=== PATIENT | female | born 1940 | race Caucasian/White ===

== ENCOUNTER 2017-02-05 01:57 | Emergency (ER) | payer OTHER, MEDICARE ==
--- NOTE | 2017-02-05 04:58 | ED ORDER SUMMARY ---
..... Patient: MARY JANE MUNOZ OrderSheet Formerly [facility] VisitID: [id number] [address] [place] [address] 76y, F Registration Date/Time: 02/05/2017 ORDER SHEET Weight: 43.9 kg (stated) Allergies: Biaxin, Ceclor, Cephalosporins, Cipro, Ibuprofen, Sulfa Drugs GENERAL ORDERS: Chest 2V Urgent (02:06 02/05/2017 Elaine Birch) (Ack 2:27 AMcQuoid ER Tech1) (3:33 AMcQuoid ER Tech1) Principal Mechanical Engineer (Continuous) (Respiratory Distress) (02:06 02/05/2017 Elaine Birch) (2:14 HSoule) CBC w Diff Urgent (02:06 02/05/2017 Elaine Birch) (2:27 AMcQuoid ER Tech1) CMP Urgent (02:06 02/05/2017 Elaine Birch) (2:27 AMcQuoid ER Tech1) Pulse oximeter (02:06 02/05/2017 Elaine Birch) (2:10 HSoule) Oxygen (2 L/min) (NC) (02:06 02/05/2017 Elaine Birch) (2:10 HSoule) MEDICATION ORDERS: DuoNeb Neb Tx 1 unit dose (NOW) (02:06 02/05/2017 Elaine Birch) (2:10 HSoule) Albuterol Neb Tx 5 mg (once now) (03:10 02/05/2017 Elaine Birch) (Ack 3:11 HSoule) (3:20 HSoule) Azithromycin PO 500 mg (NOW) (04:48 02/05/2017 Elaine Birch) (4:52 HSoule) IV FLUIDS: Solu-MEDROL IV 125 mg (NOW) (02:06 02/05/2017 Elaine Birch) (Ack 2:10 HSoule) (2:19 HSoule) IV Saline Lock (02:06 02/05/2017 Elaine Birch) (2:10 HSoule) Ativan IV 1 mg (HIGH ALERT MEDICATION, NOW) (04:20 02/05/2017 Elaine Birch) (4:40 HSoule) ORDER SHEET NOTES: [Electronically signed by Maite eTllo (05:20 02/05/2017)] [Electronically signed by Daniel Braxton Dr. (08:21 02/06/2017)] [Electronically locked/signed by Maite Tello (05:02/05/2017)]
--- NOTE | 2017-02-05 04:58 | ED NURSING NOTES ---
Clinical Report - Nurses [facility] [address] [place] [address] 02/05/2017 1:57 Patient: MARY JANE MUNOZ TRIAGE Triage time 01:59 Feb 05 2017. Acuity: LEVEL 3. Chief Complaint: SHORTNESS OF BREATH. --02:08 Maite Tello 01:59 02/05/17. BP: 119/67. HR: 104. RR: 24. O2 saturation: 95% on nasal cannula at 4 liters/minute. Pain level now: 0/10. --02:08 Maite Tello SEPSIS SCREEN: Sepsis Screen: negative heart rate greater than 90 (Possibility for infection). --02:08 Maite Tello ABBIE COMA SCORE: Abbie Coma Scale: 15- eyes open spontaneously (4); best verbal response- oriented x 4 (5); best motor response- obeys commands (6). --02:09 Maite Tello 01:59 02/05/17. Temp: 97.9 F. --05:19 Maite Tello. Weight: 43.9 kg stated. Height/Length: 60 inches Per Patient. BMI: 18.9. --02:06 Maite Tello. Medications Effexor Oral 150mg, daily. HCTZ 25 mg, daily. Potassium Oral 40mEq, daily. PredniSONE Oral 5 mg, daily. Sucralfate Oral, as needed. Vitamins/Minerals Oral 1 pill, daily. --02:05 Maite Tello Ventolin HFA Inhalation. --02:05 Maite Tello Hydrocodone-Acetaminophen Oral. --02:06 Maite Tello. Allergies Biaxin. Ceclor. Cephalosporins. Definite Severe(Anaphylaxis) Cipro. (doesn't remember SE, may be anaphylaxis.) Ibuprofen. (hurts stomach when taking too much) Sulfa Drugs. Definite Moderate(nausea) --02:04 Maite Tello. Medication/allergy information source: the patient. --02:08 Maite Tello. History Arrived by EMS. Historian: EMS and patient. Onset. (3 days). ( Patient reported choking on chicken about three days ago. She states that this caused some shortness of breath over the last three days. She states that she is having foam and phlegm coming up.). She has had a cough. No fever. Treatment CASING WORKER: See EMS report. EMS treatment CASING WORKER verbally communicated and report reviewed. See report. Oxygen administered by nasal cannula. RR: 32. O2 saturation: 97 on oxygen. ( 2 valium 5 albuterol). PAST MEDICAL HX: Chronic obstructive pulmonary disease. Immunizations: up-to-date. FALL RISK ASSESSMENT: Fall risk assessment completed. No fall risk identified. NUTRITIONAL RISK ASSESSMENT: The nutritional risk assessment revealed no deficiencies. FUNCTIONAL ASSESSMENT: Functional assessment: no impairments noted. LEARNING NEEDS ASSESSMENT: The learning needs assessment revealed no barriers. SKIN INTEGRITY ASSESSMENT: Skin integrity risk assessment completed. No skin integrity risk identified. --02:08 Maite Tello PAST MEDICAL HX: The patient is post-menopausal. SOCIAL HX: Light tobacco smoker (cigarette)- less than 1/2 a pack per day. No alcohol use or drug use. No infectious disease exposure. ABUSE ASSESSMENT: No report of abuse. --02:09 Maite Tello. PROBLEMS: Acute Pain. Peptic Ulcer Disease. Fibromyalgia. Arthritis. Medication Refill. Lung Disease. Hypoxia. Sacroiliitis. Immunizations. Anxiety Reaction. Skin Avulsion. Tetanus Status. Last Tetanus. Nephrolithiasis. Gastroesophageal Reflux. PTSD. --02:06 Maite Tello. ADDITIONAL SURGERIES: Adenoidectomy. Appendectomy. Cataract Surgery. Cholecystectomy. Hysterectomy. Tonsillectomy. --02:06 Maite Tello. Interventions ID band on patient. To treatment room. --02:08 Maite Tello. 01:55 02/05/2017 Site #1 started prior to arrival by EMS via IV in the right antecubital space with an 20g angiocath, with aseptic technique and good blood return; one attempt. --02:00 Maite Tello. PHYSICAL ASSESSMENT To room via stretcher. Patient gowned. GENERAL / NEURO / PSYCH: Alert. Oriented X 4. Appears anxious. HEENT: Mucous membranes are pink. RESPIRATORY: Mild respiratory distress. The patient can speak in full sentences. Cough. CVS: Cardiac rhythm: sinus tachycardia; (103). SKIN: Skin is warm and dry. --02:09 Maite Tello. NURSING PROGRESS NOTES Oxygen administered by nasal cannula at 4 liters. Pulse oximeter and NIBP monitor placed on patient. Patient gowned. Head of bed elevated. Reassurance given to the patient. Two patient identifiers checked. Call light placed in reach. Side rails up x 1. Bed placed in lowest position. Brakes of bed on. Patient ready for evaluation- chart flagged and ED physician notified. ( Provider at bedside). --02:10 Maite Tello Patient ID band checked for patient name and birthdate: patient confirmed. Blood samples drawn from the right antecubital space peripheral IV site by nurse ; labeled in presence of the patient and sent to lab: rainbow set. Initial blood discarded and additional blood sent to lab. Line flushed with 10 mL normal saline post blood draw. --02:10 Maite Tello 02:10 02/05/2017 Duoneb (Ipratropium-Albuterol) Neb TX Nebulizer 1 unit dose given. Given by the nurse. Allergies verified and confirmed 5 rights. --02:10 Maite Tello 02:19 02/05/2017 SOLU-MEDROL (MethylPREDNISolone Sodium Succ) IVP 125 mg given over 2 minute(s) via site #1. Allergies verified and confirmed 5 rights. IV patency established. IV site checked: no pain, redness, or swelling. IV flushed thoroughly pre- and post-medication administration. IVP given by RN. --02:19 Maite Tello Patient transported to radiology by stretcher with tech. --02:22 Maite Tello 02:19 02/05/17. BP: 133/64. HR: 102. RR: 20. O2 saturation: 92% on nasal cannula at 4 liters/minute. --02:22 Maite Tello 02:30 02/05/17. BP: 100/66. HR: 105. RR: 26. O2 saturation: 95% on nasal cannula at 4 liters/minute. --02:32 Maite Tello Patient returned from radiology by stretcher with tech. --02:32 Maite Tello 03:10 02/05/17. BP: 105/66. HR: 98. RR: 26. O2 saturation: 96% on nasal cannula at 4 liters/minute. --03:11 Maite Tello ( Family at bedside, patient and family updated regarding plan of care.). --03:11 Maite Tello 03:19 02/05/17. BP: 105/66. HR: 101. RR: 26. O2 saturation: 93% on room air. --03:20 Maite Tello 03:20 02/05/2017 Albuterol Neb TX Nebulizer 5 mg given. Given by the nurse. Allergies verified and confirmed 5 rights. --03:20 Maite Tello 03:50 02/05/17. BP: 107/62. HR: 105. RR: 24. O2 saturation: 93% on nasal cannula at 4 liters/minute. --03:51 Maite Tello ( RT at bedside giving breathing treatment). --04:11 Maite Tello 04:00 02/05/17. ( Patient assisted up to restroom with portable oxygen, patient experienced shortness of breath with ambulation.). --04:11 Maite Tello 04:30 02/05/2017 Ativan (LORazepam) IVP 1 mg given over 1 minute(s) via site #1. Allergies verified, confirmed 5 rights and sedative warning given to the patient and patient's family. IV patency established. IV site checked: no pain, redness, or swelling. IV flushed thoroughly pre- and post-medication administration. IVP given by RN. --04:40 Maite Tello 04:40 02/05/17. BP: 103/56. HR: 92. RR: 24. O2 saturation: 92% on nasal cannula at 4 liters/minute. --04:40 Maite Tello 04:52 02/05/2017 Azithromycin PO Tablets 500 mg given. Allergies verified and confirmed 5 rights. --04:52 Maite Tello. DISPOSITION / DISCHARGE The goals identified in the patient's plan of care were met. FALL RISK ASSESSMENT: Fall risk assessment completed. No fall risk identified. --04:54 Maite Tello 04:52 02/05/17. BP: 101/54. HR: 110. RR: 24. O2 saturation: 92% on nasal cannula at 4 liters/minute. Temp: 98.9 F (oral). Pain level now: 0/10. --04:54 Maite Tello No learning barriers present. Discharge instructions provided and reviewed with the patient and family. Reviewed medication(s) side effects, precautions, dosing and course information. Prescription(s) given to the patient. Reviewed need for increased fluid intake. Patient and family verbalized understanding. Written instructions provided in Upper Sorbian. ( Return if symptoms worsen. Follow up with your PCP in three days. Take your antibiotics as prescribed and complete the full course. Patient and family verbalized understanding and had no further questions at this time. Patient assisted out to vehicle in .). The patient was discharged by the physician. She was discharged home and accompanied by family. She left the Emergency Department ambulatory and via private vehicle. Family member driving. --05:18 Maite Tello 05:13 02/05/2017 Site #1 removed upon discharge. Catheter intact. Bandaid applied. --05:18 Maite Tello. Locked/Released at 02/05/2017 5:20 by Maite Tello,
--- NOTE | 2017-02-05 04:58 | ED CLINICAL REPORT ---
Clinical Report - Physicians/Mid Levels [facility] [address] [place] [address] 02/05/2017 1:57 Patient: MARY JANE MUNOZ Time Seen: 0159. Arrived- By ambulance. Historian- patient. HISTORY OF PRESENT ILLNESS Chief Complaint: WHEEZING. This started past 4 days and is still present. The dyspnea is described as severe. She has had dyspnea at rest. The patient has had sputum production and a cough. No chest pain or discomfort. See nurses notes for current asthma threapy. Asthma triggers: unknown. Takes asthma medications. Similar symptoms previously: Many times. Recent medical care: Not recently seen/assessed. REVIEW OF SYSTEMS No sore throat, nasal discharge, fever or chills. All systems otherwise negative, except as recorded above. PAST HISTORY See nurses notes. Pulmonary embolism/DVT risk factors: See old chart. Medications: Hydrocodone-Acetaminophen Oral. Ventolin HFA Inhalation. Effexor Oral 150mg, daily. HCTZ 25 mg, daily. Potassium Oral 40mEq, daily. PredniSONE Oral 5 mg, daily. Sucralfate Oral, as needed. Vitamins/Minerals Oral 1 pill, daily. Allergies: Biaxin. Ceclor. Cephalosporins. Definite Severe(Anaphylaxis) Cipro. (doesn't remember SE, may be anaphylaxis.) Ibuprofen. (hurts stomach when taking too much) Sulfa Drugs. Definite Moderate(nausea). SOCIAL HISTORY Smoker- current status unknown. No alcohol use or drug use. No recent travel. Is a local resident. ADDITIONAL NOTES The nursing notes have been reviewed. PHYSICAL EXAM Vital Signs: 02/05/2017 01:59 BP: 119/67. HR: 104. RR: 24. O2 saturation: 95%. Pain level now: 0/10. 02/05/2017 01:59 Temp: 97.9 F. Blood pressure normal. Oxygen saturation: on oxygen- oxygen saturation normal. Appearance: Alert. Patient in mild distress. (polite, cooperative, pleasant). Eyes: Pupils equal, round and reactive to light. Eyes normal inspection. ENT: Ears normal. Nose normal. Pharynx normal. Uvula midline. Neck: Normal inspection. Neck supple. CVS: Normal heart rate and rhythm. Heart sounds normal. Pulses normal. Respiratory: Mild respiratory distress with accessory muscle use and anxiety. Expiratory moderate bilateral wheezes diffusely. Abdomen: Soft and nontender. No organomegaly. Skin: Skin warm and dry. Normal skin color. No rash. Normal skin turgor. Extremities: Extremities exhibit normal ROM. No lower extremity edema. LABS, X-RAYS, AND EKG Chest X-ray: No acute disease. Normal lung markings present. No infiltrate. Views: PA and lateral. Technique: good. The X-rays were independently viewed by me and interpreted contemporaneously by me. A comparison with prior films reveals that the findings are unchanged. Laboratory Tests: CBC w Diff: (GRADY: 02/05/2017 02:04) ( MsgRcvd 02/05/2017 02:18) Final results Test Result Flag Units (Reference) WHITE BLOOD COUNT 10.2 K/uL (4.5-11.5) RED BLOOD COUNT 3.94 L M/uL (4.00-5.20) HEMOGLOBIN 12.8 gm/dL (12.0-16.0) HEMATOCRIT 37.7 % (36.0-46.0) MEAN CELL VOLUME 96 fL (80-100) MEAN CORPUSCULAR HGB 32 pg (26-34) MEAN CORPUSCULAR HGB CONC 34 g/dL (31-37) RED CELL DISTRIBUTION WIDTH 13.6 % (11.6-14.8) PLATELET COUNT 396 K/uL (150-400) NEUTROPHIL % 62.7 % (50-75) LYMPH % 28.2 % (25-40) MONO % 7.8 % (3-14) EOSINOPHIL % 1.1 % (0-4) BASOPHIL % 0.2 % (0-2) CMP: (GRADY: 02/05/2017 02:04) ( MsgRcvd 02/05/2017 02:31) Final results Test Result Flag Units (Reference) GLUCOSE 102 mg/dL (70-110) BUN 33 H mg/dL (7-18) CREATININE 1.3 mg/dL (0.6-1.3) Estimated GFR 42.33 mL/min Estimated GFR- 51.30 mL/min Note: Persistent reduction over 3 months in eGFR<60 mL/min/1.73 m2 defines CKD. Patients with eGFR values>=60 mL/min/1.73 m2 may also have CKD if evidence ofpersistent proteinuria. Additional information may be foundat www.kidney.org. SODIUM 144 mmol/L (136-145) POTASSIUM 3.4 L mmol/L (3.5-5.1) CHLORIDE 105 mmol/L (98-107) CARBON DIOXIDE 30 mmol/L (21-32) CALCIUM 9.2 mg/dL (8.5-10.1) TOTAL PROTEIN 6.9 g/dL (6.4-8.2) ALBUMIN 3.5 g/dL (3.3-5.0) BILIRUBIN, TOTAL 0.2 mg/dL (0.0-1.0) ALKALINE PHOSPHATASE 87 U/L (46-116) AST (SGOT) 24 U/L (15-37) ALT (SGPT) 22 U/L (12-78) . PROGRESS AND PROCEDURES Course of Care: The patient is a pleasant 76-year-old female presenting for evaluation of shortness of breath. The patient is well-known to our facility. Patient with a history of COPD exacerbation. 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 I discussion patient in regards to her workup here in the emergency department is agreeable to the treatment plan. Patient will be obtaining a chest x-ray as well as laboratory studies. Patient was given breathing treatments via nebulizer prior to arrival. Patient with tremors secondary to albuterol administration. We will provide the patient with nebulizer treatments but gradually to avoid the increasing tremors and agitation from the beta agonist. Do not fill patient's symptoms are due to acute myocardial infarction or pulmonary embolism. Patient is low risk on well's criteria. Patient's workup was notable for the findings above. Laboratory studies are unremarkable. Chest x-ray does not show any signs of pneumonia. had discussion with patient in regards to admission to the hospital. Patient currently declines these. We will try to improve the patient's breathing while being here in the emergency department. Patient required several doses of breathing medications. during the patient's last albuterol treatment, patient reported severe anxiety and tremors. Because of this, we will switched to Xopenex. Patient is agreeable to the treatment and plan with the Xopenex. after the medication was given, patient reports having significant improvement with her breathing. Patient reports that this medication does not make her as tremulous. Lung examination is noted to have intermittent wheezing at this time however patient reports significant improvement with her breathing and states that she is comfortable with returning home at this time. Medications including antibiotics and steroids have been provided. Patient reports having no need for refills of her medications at home. Discussed with the patient workup, diagnosis, home care, follow-up, and return precautions. All questions have been answered. The patient expressed understanding of these instructions and was agreeable to them. Disposition: Discharged. Condition: good. CLINICAL IMPRESSION 02/05/2017 04:40 BP: 103/56. HR: 92. RR: 24. O2 saturation: 92%. Oxygen saturation: borderline on oxygen- oxygen saturation low. Acute exacerbation of COPD (acute). INSTRUCTIONS Warnings: GENERAL WARNINGS: Return or contact your physician immediately if your condition worsens or changes unexpectedly, if not improving as expected, or if other problems arise. Specifically return if pain, vomiting, bleeding, breathing difficulty or fever. Your Current Medications: CONTINUE TAKING THE FOLLOWING MEDICATIONS: Effexor Oral : 150mg daily. HCTZ : 25 mg daily. Hydrocodone-Acetaminophen Oral. Potassium Oral : 40mEq daily. PredniSONE Oral : 5 mg daily. Sucralfate Oral : prn. Ventolin HFA Inhalation. Vitamins/Minerals Oral : 1 pill daily. Prescription Medications: Prednisone 50 mg: take 1 orally every day for 5 days. Dispense five (5). No refills. Zithromax Z-Lobito: Take according to package instructions. No refills. Substitution is permissible. Follow-up: Return to the emergency department as needed. Follow up with your doctor in three days. Reason for referral: recheck today's concerns. Summary of care provided to patient via paper. Screening today revealed the patient's blood pressure to be in the normal range. The patient should follow up with a primary care provider for blood pressure management. Understanding of the discharge instructions verbalized by patient. (Electronically signed by Daniel Braxton Dr. 02/06/2017 8:21)
--- NOTE | 2017-02-05 04:58 | ED ORDER SUMMARY ---
..... Patient: MARY JANE MUNOZ OrderSheet Former[facility] VisitID: [id number] [address] [place] [address] 76y, F Registration Date/Time: 02/05/2017 ORDER SHEET Weight: 43.9 kg (stated) Allergies: Biaxin, Ceclor, Cephalosporins, Cipro, Ibuprofen, Sulfa Drugs GENERAL ORDERS: Chest 2V Urgent (02:06 02/05/2017 Elaine Birch) (Ack 2:27 AMcQuoid ER Tech1) (3:33 AMcQuoid ER Tech1) Medical Records Analyst (Continuous) (Respiratory Distress) (02:06 02/05/2017 Elaine Birch) (2:14 HSoule) CBC w Diff Urgent (02:06 02/05/2017 Elaine Birch) (2:27 AMcQuoid ER Tech1) CMP Urgent (02:06 02/05/2017 Elaine Birch) (2:27 AMcQuoid ER Tech1) Pulse oximeter (02:06 02/05/2017 Elaine Birch) (2:10 HSoule) Oxygen (2 L/min) (NC) (02:06 02/05/2017 Elaine Birch) (2:10 HSoule) MEDICATION ORDERS: DuoNeb Neb Tx 1 unit dose (NOW) (02:06 02/05/2017 Elaine Birch) (2:10 HSoule) Albuterol Neb Tx 5 mg (once now) (03:10 02/05/2017 Elaine Birch) (Ack 3:11 HSoule) (3:20 HSoule) Azithromycin PO 500 mg (NOW) (04:48 02/05/2017 Elaine Birch) (4:52 HSoule) IV FLUIDS: Solu-MEDROL IV 125 mg (NOW) (02:06 02/05/2017 Elaine Birch) (Ack 2:10 HSoule) (2:19 HSoule) IV Saline Lock (02:06 02/05/2017 Elaine Birch) (2:10 HSoule) Ativan IV 1 mg (HIGH ALERT MEDICATION, NOW) (04:20 02/05/2017 Elaine Birch) (4:40 HSoule) ORDER SHEET NOTES: [Electronically signed by Maite Tello (05:20 02/05/2017)] [Electronically signed by Daniel Braxton Dr. (08:21 02/06/2017)] [Electronically locked/signed by Maite Tello (05:02/05/2017)]
--- NOTE | 2017-02-05 06:52 | DIAGNOSTIC IMAGING REPORT ---
PROCEDURE: XR CHEST 2 VIEW INDICATION: SOB W/HX OF COPD TECHNIQUE: PA and lateral view. COMPARISON: Chest x-ray 09/30/2016 FINDINGS: Hyperinflation with minor bibasilar scarring. Cardiovascular structures are normal. Bony thorax is unremarkable. No significant interval change. IMPRESSION: 1. COPD with minor bibasilar scarring.
--- NOTE | 2017-02-06 08:21 | ED DISCHARGE INSTRUCTIONS ---
Patient: MARY JANE MUNOZ General Instructions [facility] VisitID: [id number] [place] [address] 76y, F Registration Date/Time: 02/05/2017 02/05/2017 04:40 BP: 103/56. HR: 92. RR: 24. O2 saturation: 92%. Oxygen saturation: borderline on oxygen- oxygen saturation low. Acute exacerbation of COPD (acute). INSTRUCTIONS Warnings: GENERAL WARNINGS: Return or contact your physician immediately if your condition worsens or changes unexpectedly, if not improving as expected, or if other problems arise. Specifically return if pain, vomiting, bleeding, breathing difficulty or fever. Your Current Medications: CONTINUE TAKING THE FOLLOWING MEDICATIONS: Effexor Oral : 150mg daily. HCTZ : 25 mg daily. Hydrocodone-Acetaminophen Oral. Potassium Oral : 40mEq daily. PredniSONE Oral : 5 mg daily. Sucralfate Oral : prn. Ventolin HFA Inhalation. Vitamins/Minerals Oral : 1 pill daily. Prescription Medications: Prednisone 50 mg: take 1 orally every day for 5 days. Dispense five (5). No refills. Zithromax Z-Lobito: Take according to package instructions. No refills. Substitution is permissible. Follow-up: Return to the emergency department as needed. Follow up with your doctor in three days. Reason for referral: recheck today's concerns. Summary of care provided to patient via paper. Screening today revealed the patient's blood pressure to be in the normal range. The patient should follow up with a primary care provider for blood pressure management. Understanding of the discharge instructions verbalized by patient. ADDITIONAL INFORMATION COPD Flare Both emphysema and chronic bronchitis are forms of chronic obstructive pulmonary disease (COPD). It is most often caused by many years of smoking tobacco. Many things can make your lung disease suddenly get worse. These causes include the common cold, pneumonia, acute bronchitis, missing doses of your regular breathing medicines, or being around smoke, dust, or other air pollutants. A COPD flare may last 7 to 14 days. Your doctor may prescribe medicineto relax your airways and prevent wheezing. Your doctor may also prescribe antibiotics if he or she thinks you havea bacterial infection. Prednisone can helpease inflammation in a severe attack. Home care Here are things you can do at home: Drink lots of water or other fluids (at least 10 glasses a day) during an attack. This will loosen lung secretions and make it easier to breathe. If you have heart or kidney disease, check with your doctor before you drink extra amounts of fluids. Take prescribed medicine exactly at the times advised. If you have a hand-held inhaler or aerosol breathing medicine, don't use it more than once every 4 hours, unless your doctor tells you to. If you were givenan antibiotic or prednisone, take all of the medicine even if you are feeling better after a few days. Don't smoke. Avoid being aroundthe smoke of others. If you were given an inhaler, use it exactly as directed. If you need to use it more often than prescribed, your condition may be getting worse. Call your doctor. Follow-up care Follow up with your health care provider.If you are 65 or older or have chronic asthma or COPD, you should get a single dose of the pneumococcal vaccine and aflu shot each year. You may need a second dose of the pneumococcal vaccine if you had the first dose at a younger age. Your health care provider will let you know if you need a second dose. For all other people, the usual dose for the pneumococcal vaccine is 1 or 2 shots. Yourprovider can discuss this with you. When to seek medical care Get prompt medical attention ifany of these occur: Increased wheezing or shortness of breath Need to use your inhalers more often than usual without relief Fever of 100.4F(38C) or higher, or as directed by your health care provider Coughing up lots of dark-colored or bloody sputum (mucus) Chest pain with each breath You do not start to improve within 24 hours Prednisone Oral tablet What is this medicine? PREDNISONE (PRED ni sone) is a corticosteroid. It is commonly used to treat inflammation of the skin, joints, lungs, and other organs. Common conditions treated include asthma, allergies, and arthritis. It is also used for other conditions, such as blood disorders and diseases of the adrenal glands. How should I use this medicine? Take this medicine by mouth with a glass of water. Follow the directions on the prescription label. Take this medicine with food. If you are taking this medicine once a day, take it in the morning. Do not take more medicine than you are told to take. Do not suddenly stop taking your medicine because you may develop a severe reaction. Your doctor will tell you how much medicine to take. If your doctor wants you to stop the medicine, the dose may be slowly lowered over time to avoid any side effects. Talk to your coordinator of online programs regarding the use of this medicine in children. Special care may be needed. What side effects may I notice from receiving this medicine? Side effects that you should report to your doctor or health client care coordinator as soon as possible: allergic reactions like skin rash, itching or hives, swelling of the face, lips, or tongue changes in emotions or moods changes in vision depressed mood eye pain fever or chills, cough, sore throat, pain or difficulty passing urine increased thirst swelling of ankles, feet Side effects that usually do not require medical attention (report to your doctor or health client care coordinator if they continue or are bothersome): confusion, excitement, restlessness headache nausea, vomiting skin problems, acne, thin and shiny skin trouble sleeping weight gain What may interact with this medicine? Do not take this medicine with any of the following medications: metyrapone mifepristone This medicine may also interact with the following medications: aminoglutethimide amphotericin B aspirin and aspirin-like medicines barbiturates certain medicines for diabetes, like glipizide or glyburide cholestyramine cholinesterase inhibitors cyclosporine digoxin diuretics ephedrine female hormones, like estrogens and control pills isoniazid ketoconazole NSAIDS, medicines for pain and inflammation, like ibuprofen or naproxen phenytoin rifampin toxoids vaccines warfarin What if I miss a dose? If you miss a dose, take it as soon as you can. If it is almost time for your next dose, talk to your doctor or health client care coordinator. You may need to miss a dose or take an extra dose. Do not take double or extra doses without advice. Where should I keep my medicine? Keep out of the reach of children. Store at room temperature between 15 and 30 degrees C (59 and 86 degrees F). Protect from light. Keep container tightly closed. Throw away any unused medicine after the expiration date. What should I tell my health care provider before I take this medicine? They need to know if you have any of these conditions: Hecker's syndrome diabetes glaucoma heart disease high blood pressure infection (especially a virus infection such as chickenpox, cold sores, or herpes) kidney disease liver disease mental illness myasthenia gravis osteoporosis seizures stomach or intestine problems thyroid disease an unusual or allergic reaction to lactose, prednisone, other medicines, foods, dyes, or preservatives or trying to get breast-feeding What should I watch for while using this medicine? Visit your doctor or health client care coordinator for regular checks on your progress. If you are taking this medicine over a prolonged period, carry an identification card with your name and address, the type and dose of your medicine, and your doctor's name and address. This medicine may increase your risk of getting an infection. Tell your doctor or health client care coordinator if you are around anyone with measles or chickenpox, or if you develop sores or blisters that do not heal properly. If you are going to have surgery, tell your doctor or health client care coordinator that you have taken this medicine within the last twelve months. Ask your doctor or health client care coordinator about your diet. You may need to lower the amount of salt you eat. This medicine may affect blood sugar levels. If you have diabetes, check with your doctor or health client care coordinator before you change your diet or the dose of your diabetic medicine. Azithromycin Oral tablet What is this medicine? AZITHROMYCIN (az ith vel KEHINDE sin) is a macrolide antibiotic. It is used to treat or prevent certain kinds of bacterial infections. It will not work for colds, flu, or other viral infections. How should I use this medicine? Take this medicine by mouth with a full glass of water. Follow the directions on the prescription label. The tablets can be taken with food or on an empty stomach. If the medicine upsets your stomach, take it with food. Take your medicine at regular intervals. Do not take your medicine more often than directed. Take all of your medicine as directed even if you think your are better. Do not skip doses or stop your medicine early. Talk to your coordinator of online programs regarding the use of this medicine in children. Special care may be needed. What side effects may I notice from receiving this medicine? Side effects that you should report to your doctor or health client care coordinator as soon as possible: allergic reactions like skin rash, itching or hives, swelling of the face, lips, or tongue confusion, nightmares or hallucinations dark urine difficulty breathing hearing loss irregular heartbeat or chest pain pain or difficulty passing urine redness, blistering, peeling or loosening of the skin, including inside the mouth white patches or sores in the mouth yellowing of the eyes or skin Side effects that usually do not require medical attention (report to your doctor or health client care coordinator if they continue or are bothersome): diarrhea dizziness, drowsiness headache stomach upset or vomiting tooth discoloration vaginal irritation What may interact with this medicine? Do not take this medicine with any of the following medications: lincomycin This medicine may also interact with the following medications: amiodarone antacids cyclosporine digoxin magnesium nelfinavir phenytoin warfarin What if I miss a dose? If you miss a dose, take it as soon as you can. If it is almost time for your next dose, take only that dose. Do not take double or extra doses. Where should I keep my medicine? Keep out of the reach of children. Store at room temperature between 15 and 30 degrees C (59 and 86 degrees F). Throw away any unused medicine after the expiration date. What should I tell my health care provider before I take this medicine? They need to know if you have any of these conditions: kidney disease liver disease irregular heartbeat or heart disease an unusual or allergic reaction to azithromycin, erythromycin, other macrolide antibiotics, foods, dyes, or preservatives or trying to get breast-feeding What should I watch for while using this medicine? Tell your doctor or health client care coordinator if your symptoms do not improve. Do not treat diarrhea with over the counter products. Contact your doctor if you have diarrhea that lasts more than 2 days or if it is severe and watery. This medicine can make you more sensitive to the sun. Keep out of the sun. If you cannot avoid being in the sun, wear protective clothing and use sunscreen. Do not use sun lamps or tanning beds/booths. You have been given the following additional information: COPD Flare Prednisone Oral tablet Azithromycin Oral tablet (Electronically signed by Daniel Braxton Dr. 02/06/2017 8:21)
--- NOTE | 2017-02-06 08:21 | ED DISCHARGE INSTRUCTIONS ---
Patient: MARY JANE MUNOZ General Instructions [facility] VisitID: [id number] [place] [address] 76y, F Registration Date/Time: 02/05/2017 02/05/2017 04:40 BP: 103/56. HR: 92. RR: 24. O2 saturation: 92%. Oxygen saturation: borderline on oxygen- oxygen saturation low. Acute exacerbation of COPD (acute). INSTRUCTIONS Warnings: GENERAL WARNINGS: Return or contact your physician immediately if your condition worsens or changes unexpectedly, if not improving as expected, or if other problems arise. Specifically return if pain, vomiting, bleeding, breathing difficulty or fever. Your Current Medications: CONTINUE TAKING THE FOLLOWING MEDICATIONS: Effexor Oral : 150mg daily. HCTZ : 25 mg daily. Hydrocodone-Acetaminophen Oral. Potassium Oral : 40mEq daily. PredniSONE Oral : 5 mg daily. Sucralfate Oral : prn. Ventolin HFA Inhalation. Vitamins/Minerals Oral : 1 pill daily. Prescription Medications: Prednisone 50 mg: take 1 orally every day for 5 days. Dispense five (5). No refills. Zithromax Z-Lobito: Take according to package instructions. No refills. Substitution is permissible. Follow-up: Return to the emergency department as needed. Follow up with your doctor in three days. Reason for referral: recheck today's concerns. Summary of care provided to patient via paper. Screening today revealed the patient's blood pressure to be in the normal range. The patient should follow up with a primary care provider for blood pressure management. Understanding of the discharge instructions verbalized by patient. ADDITIONAL INFORMATION COPD Flare Both emphysema and chronic bronchitis are forms of chronic obstructive pulmonary disease (COPD). It is most often caused by many years of smoking tobacco. Many things can make your lung disease suddenly get worse. These causes include the common cold, pneumonia, acute bronchitis, missing doses of your regular breathing medicines, or being around smoke, dust, or other air pollutants. A COPD flare may last 7 to 14 days. Your doctor may prescribe medicineto relax your airways and prevent wheezing. Your doctor may also prescribe antibiotics if he or she thinks you havea bacterial infection. Prednisone can helpease inflammation in a severe attack. Home care Here are things you can do at home: Drink lots of water or other fluids (at least 10 glasses a day) during an attack. This will loosen lung secretions and make it easier to breathe. If you have heart or kidney disease, check with your doctor before you drink extra amounts of fluids. Take prescribed medicine exactly at the times advised. If you have a hand-held inhaler or aerosol breathing medicine, don't use it more than once every 4 hours, unless your doctor tells you to. If you were givenan antibiotic or prednisone, take all of the medicine even if you are feeling better after a few days. Don't smoke. Avoid being aroundthe smoke of others. If you were given an inhaler, use it exactly as directed. If you need to use it more often than prescribed, your condition may be getting worse. Call your doctor. Follow-up care Follow up with your health care provider.If you are 65 or older or have chronic asthma or COPD, you should get a single dose of the pneumococcal vaccine and aflu shot each year. You may need a second dose of the pneumococcal vaccine if you had the first dose at a younger age. Your health care provider will let you know if you need a second dose. For all other people, the usual dose for the pneumococcal vaccine is 1 or 2 shots. Yourprovider can discuss this with you. When to seek medical care Get prompt medical attention ifany of these occur: Increased wheezing or shortness of breath Need to use your inhalers more often than usual without relief Fever of 100.4F(38C) or higher, or as directed by your health care provider Coughing up lots of dark-colored or bloody sputum (mucus) Chest pain with each breath You do not start to improve within 24 hours Prednisone Oral tablet What is this medicine? PREDNISONE (PRED ni sone) is a corticosteroid. It is commonly used to treat inflammation of the skin, joints, lungs, and other organs. Common conditions treated include asthma, allergies, and arthritis. It is also used for other conditions, such as blood disorders and diseases of the adrenal glands. How should I use this medicine? Take this medicine by mouth with a glass of water. Follow the directions on the prescription label. Take this medicine with food. If you are taking this medicine once a day, take it in the morning. Do not take more medicine than you are told to take. Do not suddenly stop taking your medicine because you may develop a severe reaction. Your doctor will tell you how much medicine to take. If your doctor wants you to stop the medicine, the dose may be slowly lowered over time to avoid any side effects. Talk to your director group sales regarding the use of this medicine in children. Special care may be needed. What side effects may I notice from receiving this medicine? Side effects that you should report to your doctor or health primary care nurse as soon as possible: allergic reactions like skin rash, itching or hives, swelling of the face, lips, or tongue changes in emotions or moods changes in vision depressed mood eye pain fever or chills, cough, sore throat, pain or difficulty passing urine increased thirst swelling of ankles, feet Side effects that usually do not require medical attention (report to your doctor or health primary care nurse if they continue or are bothersome): confusion, excitement, restlessness headache nausea, vomiting skin problems, acne, thin and shiny skin trouble sleeping weight gain What may interact with this medicine? Do not take this medicine with any of the following medications: metyrapone mifepristone This medicine may also interact with the following medications: aminoglutethimide amphotericin B aspirin and aspirin-like medicines barbiturates certain medicines for diabetes, like glipizide or glyburide cholestyramine cholinesterase inhibitors cyclosporine digoxin diuretics ephedrine female hormones, like estrogens and control pills isoniazid ketoconazole NSAIDS, medicines for pain and inflammation, like ibuprofen or naproxen phenytoin rifampin toxoids vaccines warfarin What if I miss a dose? If you miss a dose, take it as soon as you can. If it is almost time for your next dose, talk to your doctor or health primary care nurse. You may need to miss a dose or take an extra dose. Do not take double or extra doses without advice. Where should I keep my medicine? Keep out of the reach of children. Store at room temperature between 15 and 30 degrees C (59 and 86 degrees F). Protect from light. Keep container tightly closed. Throw away any unused medicine after the expiration date. What should I tell my health care provider before I take this medicine? They need to know if you have any of these conditions: [place]'s syndrome diabetes glaucoma heart disease high blood pressure infection (especially a virus infection such as chickenpox, cold sores, or herpes) kidney disease liver disease mental illness myasthenia gravis osteoporosis seizures stomach or intestine problems thyroid disease an unusual or allergic reaction to lactose, prednisone, other medicines, foods, dyes, or preservatives or trying to get breast-feeding What should I watch for while using this medicine? Visit your doctor or health primary care nurse for regular checks on your progress. If you are taking this medicine over a prolonged period, carry an identification card with your name and address, the type and dose of your medicine, and your doctor's name and address. This medicine may increase your risk of getting an infection. Tell your doctor or health primary care nurse if you are around anyone with measles or chickenpox, or if you develop sores or blisters that do not heal properly. If you are going to have surgery, tell your doctor or health primary care nurse that you have taken this medicine within the last twelve months. Ask your doctor or health primary care nurse about your diet. You may need to lower the amount of salt you eat. This medicine may affect blood sugar levels. If you have diabetes, check with your doctor or health primary care nurse before you change your diet or the dose of your diabetic medicine. Azithromycin Oral tablet What is this medicine? AZITHROMYCIN (az ith vel KEHINDE sin) is a macrolide antibiotic. It is used to treat or prevent certain kinds of bacterial infections. It will not work for colds, flu, or other viral infections. How should I use this medicine? Take this medicine by mouth with a full glass of water. Follow the directions on the prescription label. The tablets can be taken with food or on an empty stomach. If the medicine upsets your stomach, take it with food. Take your medicine at regular intervals. Do not take your medicine more often than directed. Take all of your medicine as directed even if you think your are better. Do not skip doses or stop your medicine early. Talk to your director group sales regarding the use of this medicine in children. Special care may be needed. What side effects may I notice from receiving this medicine? Side effects that you should report to your doctor or health primary care nurse as soon as possible: allergic reactions like skin rash, itching or hives, swelling of the face, lips, or tongue confusion, nightmares or hallucinations dark urine difficulty breathing hearing loss irregular heartbeat or chest pain pain or difficulty passing urine redness, blistering, peeling or loosening of the skin, including inside the mouth white patches or sores in the mouth yellowing of the eyes or skin Side effects that usually do not require medical attention (report to your doctor or health primary care nurse if they continue or are bothersome): diarrhea dizziness, drowsiness headache stomach upset or vomiting tooth discoloration vaginal irritation What may interact with this medicine? Do not take this medicine with any of the following medications: lincomycin This medicine may also interact with the following medications: amiodarone antacids cyclosporine digoxin magnesium nelfinavir phenytoin warfarin What if I miss a dose? If you miss a dose, take it as soon as you can. If it is almost time for your next dose, take only that dose. Do not take double or extra doses. Where should I keep my medicine? Keep out of the reach of children. Store at room temperature between 15 and 30 degrees C (59 and 86 degrees F). Throw away any unused medicine after the expiration date. What should I tell my health care provider before I take this medicine? They need to know if you have any of these conditions: kidney disease liver disease irregular heartbeat or heart disease an unusual or allergic reaction to azithromycin, erythromycin, other macrolide antibiotics, foods, dyes, or preservatives or trying to get breast-feeding What should I watch for while using this medicine? Tell your doctor or health primary care nurse if your symptoms do not improve. Do not treat diarrhea with over the counter products. Contact your doctor if you have diarrhea that lasts more than 2 days or if it is severe and watery. This medicine can make you more sensitive to the sun. Keep out of the sun. If you cannot avoid being in the sun, wear protective clothing and use sunscreen. Do not use sun lamps or tanning beds/booths. You have been given the following additional information: COPD Flare Prednisone Oral tablet Azithromycin Oral tablet (Electronically signed by Daniel Braxton Dr. 02/06/2017 8:21)
--- NOTE | 2017-02-06 08:21 | ED MAR SUMMARY ---
..... Medication Administration Record [facility] [address] [place] [address] Patient: MARY JANE MUNOZ Visit ID: [id number] 76y, F Weight: 43.9 kg Height/Length: 60 in BMI: 18.9 ALLERGIES: Biaxin, Ceclor, Cephalosporins, Cipro, Ibuprofen, Sulfa Drugs Given 02:10 02/05/2017 Maite Tello, Medication Administered: DUONEB [NEB TX] (IPRATROPIUM-ALBUTEROL), Dose: 1 unit dose Nebulizer Neb TX. Medication Ordered: DuoNeb Neb Tx 1 unit dose (NOW). Given 02:19 02/05/2017 Maite Tello, Medication Administered: SOLU-MEDROL [IVP] (METHYLPREDNISOLONE SODIUM SUCC), Dose: 125 mg IVP over 2 minute(s), Site: #1 right AC. Medication Ordered: Solu-MEDROL IV 125 mg (NOW). Given 03:20 02/05/2017 Maite Tello, Medication Administered: ALBUTEROL [NEB TX], Dose: 5 mg Nebulizer Neb TX. Medication Ordered: Albuterol Neb Tx 5 mg (once now). Given 04:30 02/05/2017 Maite Tello, Medication Administered: ATIVAN [IVP] (LORAZEPAM), Dose: 1 mg IVP over 1 minute(s), Site: #1 right AC. Medication Ordered: Ativan IV 1 mg (HIGH ALERT MEDICATION, NOW). Given 04:52 02/05/2017 Maite Tello, Medication Administered: AZITHROMYCIN [PO], Dose: 500 mg Tablets PO. Medication Ordered: Azithromycin PO 500 mg (NOW).
--- NOTE | 2017-02-06 08:21 | ED MED RECONCILIATION SUMMARY ---
Patient: MARY JANE MUNOZ Medication Reconciliation Report [facility] VisitID: [id number] [address] [place] [address] 76y, F Registration Date/Time: 02/05/2017 Weight: 43.9 kg Height/Length: 60 in. BMI: 18.9 ALLERGIES: Biaxin, Ceclor, Cephalosporins, Cipro, Ibuprofen, Sulfa Drugs The patient's Home Medications are listed below: CONTINUE TAKING THE FOLLOWING MEDICATIONS: Effexor Oral 150mg, daily HCTZ 25 mg, daily Hydrocodone-Acetaminophen Oral Potassium Oral 40mEq, daily PredniSONE Oral 5 mg, daily Sucralfate Oral Ventolin HFA Inhalation Vitamins/Minerals Oral 1 pill, daily The source(s) of the original Home Medication information: patient The following Medications were given to the patient in the Emergency Department: Duoneb [Neb Tx] Neb TX 1 unit dose, administered: 02/05/2017 2:10:00 AM SOLU-MEDROL [IVP] IVP 125 mg, administered: 02/05/2017 2:19:00 AM Albuterol [Neb Tx] Neb TX 5 mg, administered: 02/05/2017 3:20:00 AM Ativan [IVP] IVP 1 mg, administered: 02/05/2017 4:30:00 AM Azithromycin [PO] PO 500 mg, administered: 02/05/2017 4:52:00 AM The following Medications were prescribed to the patient: Prednisone 50 mg: take 1 orally every day for 5 days. Dispense five (5). No refills. -- Daniel Braxton Dr. [facility]: Take according to package instructions. No refills. Substitution is permissible. -- Daniel Braxton Dr.
--- NOTE | 2017-02-06 08:21 | ED MED RECONCILIATION SUMMARY ---
Patient: MARY JANE MUNOZ Medication Reconciliation Report [facility] VisitID: [id number] [address] [place] [address] 76y, F Registration Date/Time: 02/05/2017 Weight: 43.9 kg Height/Length: 60 in. BMI: 18.9 ALLERGIES: Biaxin, Ceclor, Cephalosporins, Cipro, Ibuprofen, Sulfa Drugs The patient's Home Medications are listed below: CONTINUE TAKING THE FOLLOWING MEDICATIONS: Effexor Oral 150mg, daily HCTZ 25 mg, daily Hydrocodone-Acetaminophen Oral Potassium Oral 40mEq, daily PredniSONE Oral 5 mg, daily Sucralfate Oral Ventolin HFA Inhalation Vitamins/Minerals Oral 1 pill, daily The source(s) of the original Home Medication information: patient The following Medications were given to the patient in the Emergency Department: Duoneb [Neb Tx] Neb TX 1 unit dose, administered: 02/05/2017 2:10:00 AM SOLU-MEDROL [IVP] IVP 125 mg, administered: 02/05/2017 2:19:00 AM Albuterol [Neb Tx] Neb TX 5 mg, administered: 02/05/2017 3:20:00 AM Ativan [IVP] IVP 1 mg, administered: 02/05/2017 4:30:00 AM Azithromycin [PO] PO 500 mg, administered: 02/05/2017 4:52:00 AM The following Medications were prescribed to the patient: Prednisone 50 mg: take 1 orally every day for 5 days. Dispense five (5). No refills. -- Daniel Braxton Dr[facility]: Take according to package instructions. No refills. Substitution is permissible. -- Daniel Braxton Dr.
--- NOTE | 2017-02-06 08:21 | ED MAR SUMMARY ---
..... Medication Administration Record [facility] [address] [place] [address] Patient: MARY JANE MUNOZ Visit ID: [id number] 76y, F Weight: 43.9 kg Height/Length: 60 in BMI: 18.9 ALLERGIES: Biaxin, Ceclor, Cephalosporins, Cipro, Ibuprofen, Sulfa Drugs Given 02:10 02/05/2017 Maite Tello, Medication Administered: DUONEB [NEB TX] (IPRATROPIUM-ALBUTEROL), Dose: 1 unit dose Nebulizer Neb TX. Medication Ordered: DuoNeb Neb Tx 1 unit dose (NOW). Given 02:19 02/05/2017 Maite Tello, Medication Administered: SOLU-MEDROL [IVP] (METHYLPREDNISOLONE SODIUM SUCC), Dose: 125 mg IVP over 2 minute(s), Site: #1 right AC. Medication Ordered: Solu-MEDROL IV 125 mg (NOW). Given 03:20 02/05/2017 Maite Tello, Medication Administered: ALBUTEROL [NEB TX], Dose: 5 mg Nebulizer Neb TX. Medication Ordered: Albuterol Neb Tx 5 mg (once now). Given 04:30 02/05/2017 Maite Tello, Medication Administered: ATIVAN [IVP] (LORAZEPAM), Dose: 1 mg IVP over 1 minute(s), Site: #1 right AC. Medication Ordered: Ativan IV 1 mg (HIGH ALERT MEDICATION, NOW). Given 04:52 02/05/2017 Maite Tello, Medication Administered: AZITHROMYCIN [PO], Dose: 500 mg Tablets PO. Medication Ordered: Azithromycin PO 500 mg (NOW).
== END 2017-02-05 05:10 | disposition home or self-care (01) ==
LOC: ED SRH 01:57
DX: J44.1 Chronic obstructive pulmonary disease with (acute) exacerbation (principal); J98.4 Other disorders of lung; Z79.899 Other long term (current) drug therapy; Z88.1 Allergy status to other antibiotic agents; Z88.2 Allergy status to sulfonamides; Z88.8 Allergy status to other drugs, medicaments and biological substances
CPT/HCPCS: 90100; 95059

== ENCOUNTER 2017-02-23 17:55 | Emergency (ER) | payer OTHER, MEDICARE ==
--- NOTE | 2017-02-23 19:47 | DIAGNOSTIC IMAGING REPORT ---
PROCEDURE: XR CHEST 1 VIEW INDICATION: SHORTNESS OF BREATH TECHNIQUE: Portable AP view (1910 hours). COMPARISON: Compared to chest x-ray 09/30/2016. FINDINGS: Allowing for overlying wires and electrodes, lungs are clear. Heart is of normal size. Mediastinum is normal (tortuous thoracic aorta). Thorax is normal. Status post cholecystectomy (surgical clips). IMPRESSION: 1. Negative chest.
--- NOTE | 2017-02-23 19:53 | ED ORDER SUMMARY ---
..... Patient: MARY JANE MUNOZ OrderSheet [facility] VisitID: [id number] [place] [address] 76y, F Registration Date/Time: 02/23/2017 ORDER SHEET Weight: 43.9 kg (stated) Allergies: Biaxin, Ceclor, Cephalosporins, Cipro, Ibuprofen, Sulfa Drugs, Levofloxacin GENERAL ORDERS: Chest 1V Urgent (19:01 02/23/2017 Selin Birch) (Ack 19:07 AMcQuoid ER Tech1) (19:16 Ade) MEDICATION ORDERS: Prednisone PO 30 mg (NOW) (18:48 02/23/2017 Selin Birch) (18:59 Magdalenas R.N.) Doxycycline Monohydrate PO 100 mg (NOW) (18:52 02/23/2017 Selin Birch) (19:00 CHARLEYanders R.N.) IV FLUIDS: IV Saline Lock (18:39 02/23/2017 Magdalenas R.N. per protocol) (18:39 JSanders R.N.) ORDER SHEET NOTES: [Electronically signed by Cris Mccarthy R.N. (21:18 02/23/2017)] [Electronically signed by Sterling Cisse Dr. (22:05 02/23/2017)] [Electronically locked/signed by Cris Mccarthy R.N. (21:18 02/23/2017)]
--- NOTE | 2017-02-23 19:53 | ED CLINICAL REPORT ---
Clinical Report - Physicians/Mid Levels [facility] [address] [place] [address] 02/23/2017 17:55 Patient: MARY JANE MUNOZ Time Seen: 18:18; initial patient contact. Arrived- By private vehicle. Historian- patient. HISTORY OF PRESENT ILLNESS Chief Complaint: DYSPNEA and HISTORY OF CHRONIC OBSTRUCTIVE PULMONARY DISEASE. This started about 2 days ago and is still present and worsening. (persistent). It was gradual in onset and has been constant. The dyspnea is described as moderate and is worsened by walking, exertion and cough and is improved by rest. The patient has had sputum production, a cough, wheezing and dyspnea on exertion. No fever, sweating episodes, chills or chest pain or discomfort. No calf pain, foot swelling, orthopnea, anxiety or palpitations. Similar symptoms previously: Many times. Recent medical care: Not recently seen/assessed. REVIEW OF SYSTEMS No nasal discharge, sinus drainage, nausea or vomiting. All systems otherwise negative, except as recorded above. PAST HISTORY Acute Pain. Peptic Ulcer Disease. Fibromyalgia. Arthritis. Lung Disease. Hypoxia. Nephrolithiasis. Gastroesophageal Reflux. PTSD. COPD SURGERIES: Adenoidectomy. Appendectomy. Cataract Surgery. Cholecystectomy. Hysterectomy. Tonsillectomy. SOCIAL HISTORY Current every day smoker. ADDITIONAL NOTES The nursing notes have been reviewed. PHYSICAL EXAM Vital Signs: 02/23/2017 18:00 BP: 118/76. HR: 121. RR: 24. O2 saturation: 92%. Temp: 98.1 F. Pain level now: 0/10. Have been reviewed. Blood pressure normal. Tachycardic. Tachypneic. Temperature normal. Oxygen saturation low. Appearance: Alert. No acute distress. Eyes: Eyes normal inspection. ENT: Pharynx normal. Neck: Normal inspection. No jugular venous distention. CVS: Tachycardia. Heart sounds normal. Rhythm normal. Respiratory: Mild respiratory distress with accessory muscle use and retractions. Mildly prolonged expirations. Expiratory mild bilateral wheezes diffusely. Skin: Normal skin color. No rash. Extremities: No lower extremity edema. Neuro: Oriented X 3. PROGRESS AND PROCEDURES Course of Care: Prednisone 30 mg PO given. DuoNeb nebulizer treatment (1 unit dose) given. Physical exam findings are improved. Symptoms much better. Disposition: Discharged home in good and improved condition. Condition: good. CLINICAL IMPRESSION Acute exacerbation of COPD. INSTRUCTIONS Your Current Medications: CONTINUE TAKING THE FOLLOWING MEDICATIONS: Effexor Oral : 150mg daily. HCTZ : 25 mg daily. Hydrocodone-Acetaminophen Oral. Potassium Oral : 40mEq daily. PredniSONE Oral : 10 mg daily. Sucralfate Oral : prn. Ventolin HFA Inhalation. Vitamins/Minerals Oral : 1 pill daily. Prescription Medications: Doxycycline 100 mg: Take 1 capsule orally every 12 hours for 7 days. No refill. Prednisone 10 mg tablets: take 4 tablets every day for 5 days ; then take 2 tablets every day for 3 days ; then take 1 tablet every day for 2 days. Dispense sufficient quantity. No refills. Follow-up: Follow up with your doctor in about four days. Call for an appointment. Screening today revealed the patient's blood pressure to be in the normal range. (Electronically signed by Sterling Cisse Dr. 02/23/2017 22:05)
--- NOTE | 2017-02-23 19:53 | ED NURSING NOTES ---
Clinical Report - Nurses [facility] [address] [place] [address] 02/23/2017 17:55 [facility]: [id number] Triage time 18:00 Feb 23 2017. Acuity: LEVEL 3. Chief Complaint: SHORTNESS OF BREATH. SEPSIS SCREEN: Sepsis Screen. Negative (no infection suspected/documented). [place] COMA SCORE: [place] Coma Scale: 15- eyes open spontaneously (4); best verbal response- oriented x 4 (5); best motor response- obeys commands (6). --18:07 Lisbeth Curtis R.N. 18:00 02/23/17. BP: 118/76 (regular adult cuff) taken on the left arm, while sitting. HR: 121. RR: 24. O2 saturation: 92% on room air. Temp: 98.1 F (oral). Pain level now: 0/10. --18:07 Lisbeth Curtis R.N. Weight: 43.9 kg stated. Height/Length: 68 inches Per Patient. BMI: 14.7. --18:06 Lisbeth Curtis R.N. Medications Effexor Oral 150mg, daily. HCTZ 25 mg, daily. Hydrocodone-Acetaminophen Oral. Potassium Oral 40mEq, daily. PredniSONE Oral 10 mg, daily. Sucralfate Oral, as needed. Ventolin HFA Inhalation. Vitamins/Minerals Oral 1 pill, daily. --18:01 Lisbeth Curtis R.N. The following entry was struck and corrected by Lisbeth Curtis R.N., 18:03 (02/23/17) Reason for correction - other(correction). <<STRICKEN ENTRY-- PredniSONE Oral 5 mg, daily. --18:01 Lisbeth Curtis R.N. --END STRIKE>>. Allergies Biaxin. Ceclor. Cephalosporins. Definite Severe(Anaphylaxis) Cipro. (doesn't remember SE, may be anaphylaxis.) Ibuprofen. (hurts stomach when taking too much) Sulfa Drugs. Definite Moderate(nausea) --18:01 Lisbeth Curtis R.N. Levofloxacin. Mild(hives) --19:00 Lisbeth Curtis R.N. History Arrived by private vehicle. Historian: patient. Accompanied by family. Onset. (was in ER in January for same reason). ( Oxygen at home PRN). She has had a cough and chest pain. Treatment DENIAL RESOLUTION SPECIALIST: (neb treatment 1300). PAST MEDICAL HX: Chronic obstructive pulmonary disease. The patient is post-menopausal. SOCIAL HX: Smoker- current status unknown. No alcohol use or drug use. No infectious disease exposure. ABUSE ASSESSMENT: No report of abuse. --18:07 Lisbeth Curtis R.N. PROBLEMS: DVT/PE Risk Factors. Acute Pain. Peptic Ulcer Disease. Fibromyalgia. Arthritis. Lung Disease. Hypoxia. Nephrolithiasis. Gastroesophageal Reflux. PTSD. --18:01 Lisbeth Curtis R.N. The following entry was modified by Lisbeth Curtis R.N., 18:03 <<STRICKEN ENTRY-- COPD - Chronic Obstructive Pulmonary Disease. --03:54 Lisbeth Curtis R.N. --END STRIKE>>. ADDITIONAL SURGERIES: Adenoidectomy. Appendectomy. Cataract Surgery. Cholecystectomy. Hysterectomy. Tonsillectomy. --18:01 Lisbeth Curtis R.N. Interventions ID band on patient. To treatment room. --18:07 Lisbeth Curtis R.N. PHYSICAL ASSESSMENT To room via wheelchair. Patient gowned. GENERAL / NEURO / PSYCH: Alert. Oriented X 4. Appears anxious. HEENT: Mucous membranes are pink. RESPIRATORY: Moderate respiratory distress. The patient can speak a few words at a time. Retractions. Upper sternal tenderness. Decreased breath sounds in the left lung base, mid-lung and upper lung. CVS: Capillary refill less than 2 seconds. GI / : Abdomen soft and nontender. Bowel sounds within normal limits. SKIN: Skin is warm. --18:08 Lisbeth Curtis R.N. NURSING PROGRESS NOTES The plan of care for this patient has been created. Monitoring of patient in place. Patient gowned. Head of bed elevated. Reassurance given. Two patient identifiers checked. Call light placed in reach. Side rails up x 1. Bed placed in lowest position. Brakes of bed on. Patient ready for evaluation- chart flagged and ED physician notified. --18:08 Lisbeth Curtis R.N. 18:24 02/23/2017 Site #1 started via IV in the right antecubital space with an 20g angiocath, with aseptic technique and good blood return; one attempt. Blood drawn: rainbow set. Labeled in the presence of the patient and sent to the lab. Saline lock flushed with 10 mL saline. --18:39 Lisbeth Curtis R.N. late entry - 18:25 02/23/17. ( Patient having nebulizer treatment). --18:36 Lisbeth Curtis R.N. ( Daughter at patients bedside). --18:37 Lisbeth Curtis R.N. 18:37 02/23/17. BP: 98/66 (regular adult cuff) taken on the left arm, while sitting. HR: 118. RR: 26. O2 saturation: 92% on room air. Pain level now: 0/10. --18:38 Lisbeth Curtis R.N. 18:58 02/23/2017 Prednisone PO Tablets 30 mg given. Allergies verified and confirmed 5 rights. --18:59 Lisbeth Curtis R.N. 19:00 02/23/2017 DOXYCYCLINE MONOHYDRATE PO Tablets 100 mg given. Allergies verified and confirmed 5 rights. --19:00 Lisbeth Curtis R.N. 19:01 02/23/17. BP: 106/68 (regular adult cuff) taken on the left arm, while sitting. HR: 105. RR: 20. O2 saturation: 91% on room air. Pain level now: 0/10. --19:01 Lisbeth Curtis R.N. 19:20 02/23/17. BP: 106/69. HR: 99. RR: 24. O2 saturation: 91%. Pain level now: 0/10. --19:22 Cris Mccarthy R.N. DISPOSITION / DISCHARGE Departure time: :Feb 23 2017. Condition at departure: improved. The following issues were addressed: comfort issues. Fall risk assessment completed. Risk factors identified include patient age greater than 65 years. No learning barriers present. Discharge instructions provided and reviewed with the patient. Reviewed medication(s) side effects, precautions, dosing and course information. Reviewed referral to a primary care physician. Patient verbalized understanding. Written instructions provided in [place]. The patient was discharged home and accompanied by family. She left the Emergency Department ambulatory and via private vehicle. Family member driving. --20:20 Cris Mccarthy R.N. 20:18 02/23/17. BP: 112/74. HR: 90. RR: 26. O2 saturation: 91%. Pain level now: 0/10. --20:20 Cris Mccarthy R.N. Locked/Released at 02/23/2017 21:18 by Cris Mccarthy R.N.
--- NOTE | 2017-02-23 19:53 | ED ORDER SUMMARY ---
..... Patient: MARY JANE MUNOZ OrderSheet [facility] VisitID: [id number] [place] [address] 76y, F Registration Date/Time: 02/23/2017 ORDER SHEET Weight: 43.9 kg (stated) Allergies: Biaxin, Ceclor, Cephalosporins, Cipro, Ibuprofen, Sulfa Drugs, Levofloxacin GENERAL ORDERS: Chest 1V Urgent (19:01 02/23/2017 Selin Birch) (Ack 19:07 AMcQuoid ER Tech1) (19:16 Ade) MEDICATION ORDERS: Prednisone PO 30 mg (NOW) (18:48 02/23/2017 Selin Birch) (18:59 Magdalenas R.N.) Doxycycline Monohydrate PO 100 mg (NOW) (18:52 02/23/2017 Selin Birch) (19:00 CHARLEYanders R.N.) IV FLUIDS: IV Saline Lock (18:39 02/23/2017 Magdalenas R.N. per protocol) (18:39 JSanders R.N.) ORDER SHEET NOTES: [Electronically signed by Cris Mccarthy R.N. (21:18 02/23/2017)] [Electronically signed by Sterling Cisse Dr. (22:05 02/23/2017)] [Electronically locked/signed by Cris Mccarthy R.N. (21:18 02/23/2017)]
--- NOTE | 2017-02-23 19:53 | ED CLINICAL REPORT ---
Clinical Report - Physicians/Mid Levels [facility] [address] [place] [address] 02/23/2017 17:55 Patient: MARY JANE MUNOZ Time Seen: 18:18; initial patient contact. Arrived- By private vehicle. Historian- patient. HISTORY OF PRESENT ILLNESS Chief Complaint: DYSPNEA and HISTORY OF CHRONIC OBSTRUCTIVE PULMONARY DISEASE. This started about 2 days ago and is still present and worsening. (persistent). It was gradual in onset and has been constant. The dyspnea is described as moderate and is worsened by walking, exertion and cough and is improved by rest. The patient has had sputum production, a cough, wheezing and dyspnea on exertion. No fever, sweating episodes, chills or chest pain or discomfort. No calf pain, foot swelling, orthopnea, anxiety or palpitations. Similar symptoms previously: Many times. Recent medical care: Not recently seen/assessed. REVIEW OF SYSTEMS No nasal discharge, sinus drainage, nausea or vomiting. All systems otherwise negative, except as recorded above. PAST HISTORY Acute Pain. Peptic Ulcer Disease. Fibromyalgia. Arthritis. Lung Disease. Hypoxia. Nephrolithiasis. Gastroesophageal Reflux. PTSD. COPD SURGERIES: Adenoidectomy. Appendectomy. Cataract Surgery. Cholecystectomy. Hysterectomy. Tonsillectomy. SOCIAL HISTORY Current every day smoker. ADDITIONAL NOTES The nursing notes have been reviewed. PHYSICAL EXAM Vital Signs: 02/23/2017 18:00 BP: 118/76. HR: 121. RR: 24. O2 saturation: 92%. Temp: 98.1 F. Pain level now: 0/10. Have been reviewed. Blood pressure normal. Tachycardic. Tachypneic. Temperature normal. Oxygen saturation low. Appearance: Alert. No acute distress. Eyes: Eyes normal inspection. ENT: Pharynx normal. Neck: Normal inspection. No jugular venous distention. CVS: Tachycardia. Heart sounds normal. Rhythm normal. Respiratory: Mild respiratory distress with accessory muscle use and retractions. Mildly prolonged expirations. Expiratory mild bilateral wheezes diffusely. Skin: Normal skin color. No rash. Extremities: No lower extremity edema. Neuro: Oriented X 3. PROGRESS AND PROCEDURES Course of Care: Prednisone 30 mg PO given. DuoNeb nebulizer treatment (1 unit dose) given. Physical exam findings are improved. Symptoms much better. Disposition: Discharged home in good and improved condition. Condition: good. CLINICAL IMPRESSION Acute exacerbation of COPD. INSTRUCTIONS Your Current Medications: CONTINUE TAKING THE FOLLOWING MEDICATIONS: Effexor Oral : 150mg daily. HCTZ : 25 mg daily. Hydrocodone-Acetaminophen Oral. Potassium Oral : 40mEq daily. PredniSONE Oral : 10 mg daily. Sucralfate Oral : prn. Ventolin HFA Inhalation. Vitamins/Minerals Oral : 1 pill daily. Prescription Medications: Doxycycline 100 mg: Take 1 capsule orally every 12 hours for 7 days. No refill. Prednisone 10 mg tablets: take 4 tablets every day for 5 days ; then take 2 tablets every day for 3 days ; then take 1 tablet every day for 2 days. Dispense sufficient quantity. No refills. Follow-up: Follow up with your doctor in about four days. Call for an appointment. Screening today revealed the patient's blood pressure to be in the normal range. (Electronically signed by Sterling Cisse Dr. 02/23/2017 22:05)
--- NOTE | 2017-02-23 22:05 | ED MAR SUMMARY ---
..... Medication Administration Record [facility] [address] [place] [address] Patient: MARY JANE MUNOZ Visit ID: [id number] 76y, F Weight: 43.9 kg Height/Length: 68 in BMI: 14.7 ALLERGIES: Biaxin, Ceclor, Cephalosporins, Cipro, Ibuprofen, Sulfa Drugs, Levofloxacin Given 18:58 02/23/2017 Lisbeth Curtis R.N. Medication Administered: PREDNISONE [PO], Dose: 30 mg Tablets PO. Medication Ordered: Prednisone PO 30 mg (NOW). Given 19:00 02/23/2017 Lisbeth Curtis R.N. Medication Administered: DOXYCYCLINE MONOHYDRATE [PO], Dose: 100 mg Tablets PO. Medication Ordered: Doxycycline Monohydrate PO 100 mg (NOW).
--- NOTE | 2017-02-23 22:05 | ED MED RECONCILIATION SUMMARY ---
Patient: MARY JANE MUNOZ Medication Reconciliation Report [facility] VisitID: [id number] [place] [address] 76y, F Registration Date/Time: 02/23/2017 Weight: 43.9 kg Height/Length: 68 in. BMI: 14.7 ALLERGIES: Biaxin, Ceclor, Cephalosporins, Cipro, Ibuprofen, Levofloxacin, Sulfa Drugs The patient's Home Medications are listed below: CONTINUE TAKING THE FOLLOWING MEDICATIONS: Effexor Oral 150mg, daily HCTZ 25 mg, daily Hydrocodone-Acetaminophen Oral Potassium Oral 40mEq, daily PredniSONE Oral 10 mg, daily Sucralfate Oral Ventolin HFA Inhalation Vitamins/Minerals Oral 1 pill, daily The source(s) of the original Home Medication information: Not obtained. The following Medications were given to the patient in the Emergency Department: Prednisone [PO] PO 30 mg, administered: 02/23/2017 6:58:00 PM DOXYCYCLINE MONOHYDRATE [PO] PO 100 mg, administered: 02/23/2017 7:00:00 PM The following Medications were prescribed to the patient: Doxycycline 100 mg: Take 1 capsule orally every 12 hours for 7 days. No refill. -- Sterling Cisse Dr. Prednisone 10 mg tablets: take 4 tablets every day for 5 days ; then take 2 tablets every day for 3 days ; then take 1 tablet every day for 2 days. Dispense sufficient quantity. No refills. -- Sterling Cisse Dr.
--- NOTE | 2017-02-23 22:05 | ED MED RECONCILIATION SUMMARY ---
Patient: MARY JANE MUNOZ Medication Reconciliation Report [facility] VisitID: [id number] [place] [address] 76y, F Registration Date/Time: 02/23/2017 Weight: 43.9 kg Height/Length: 68 in. BMI: 14.7 ALLERGIES: Biaxin, Ceclor, Cephalosporins, Cipro, Ibuprofen, Levofloxacin, Sulfa Drugs The patient's Home Medications are listed below: CONTINUE TAKING THE FOLLOWING MEDICATIONS: Effexor Oral 150mg, daily HCTZ 25 mg, daily Hydrocodone-Acetaminophen Oral Potassium Oral 40mEq, daily PredniSONE Oral 10 mg, daily Sucralfate Oral Ventolin HFA Inhalation Vitamins/Minerals Oral 1 pill, daily The source(s) of the original Home Medication information: Not obtained. The following Medications were given to the patient in the Emergency Department: Prednisone [PO] PO 30 mg, administered: 02/23/2017 6:58:00 PM DOXYCYCLINE MONOHYDRATE [PO] PO 100 mg, administered: 02/23/2017 7:00:00 PM The following Medications were prescribed to the patient: Doxycycline 100 mg: Take 1 capsule orally every 12 hours for 7 days. No refill. -- Sterling Cisse Dr. Prednisone 10 mg tablets: take 4 tablets every day for 5 days ; then take 2 tablets every day for 3 days ; then take 1 tablet every day for 2 days. Dispense sufficient quantity. No refills. -- Sterling Cisse Dr.
--- NOTE | 2017-02-23 22:05 | ED MAR SUMMARY ---
..... Medication Administration Record [facility] [address] [place] [address] Patient: MARY JANE MUNOZ Visit ID: [id number] 76y, F Weight: 43.9 kg Height/Length: 68 in BMI: 14.7 ALLERGIES: Biaxin, Ceclor, Cephalosporins, Cipro, Ibuprofen, Sulfa Drugs, Levofloxacin Given 18:58 02/23/2017 Lisbeth Curtis R.N. Medication Administered: PREDNISONE [PO], Dose: 30 mg Tablets PO. Medication Ordered: Prednisone PO 30 mg (NOW). Given 19:00 02/23/2017 Lisbeth Curtis R.N. Medication Administered: DOXYCYCLINE MONOHYDRATE [PO], Dose: 100 mg Tablets PO. Medication Ordered: Doxycycline Monohydrate PO 100 mg (NOW).
--- NOTE | 2017-02-23 22:05 | ED DISCHARGE INSTRUCTIONS ---
Patient: MARY JANE MUNOZ General Instructions [facility] VisitID: [id number] [place] [address] 76y, F Registration Date/Time: 02/23/2017 Acute exacerbation of COPD. INSTRUCTIONS Your Current Medications: CONTINUE TAKING THE FOLLOWING MEDICATIONS: Effexor Oral : 150mg daily. HCTZ : 25 mg daily. Hydrocodone-Acetaminophen Oral. Potassium Oral : 40mEq daily. PredniSONE Oral : 10 mg daily. Sucralfate Oral : prn. Ventolin HFA Inhalation. Vitamins/Minerals Oral : 1 pill daily. Prescription Medications: Doxycycline 100 mg: Take 1 capsule orally every 12 hours for 7 days. No refill. Prednisone 10 mg tablets: take 4 tablets every day for 5 days ; then take 2 tablets every day for 3 days ; then take 1 tablet every day for 2 days. Dispense sufficient quantity. No refills. Follow-up: Follow up with your doctor in about four days. Call for an appointment. Screening today revealed the patient's blood pressure to be in the normal range. ADDITIONAL INFORMATION COPD Flare Both emphysema and chronic bronchitis are forms of chronic obstructive pulmonary disease (COPD). It is most often caused by many years of smoking tobacco. Many things can make your lung disease suddenly get worse. These causes include the common cold, pneumonia, acute bronchitis, missing doses of your regular breathing medicines, or being around smoke, dust, or other air pollutants. A COPD flare may last 7 to 14 days. Your doctor may prescribe medicineto relax your airways and prevent wheezing. Your doctor may also prescribe antibiotics if he or she thinks you havea bacterial infection. Prednisone can helpease inflammation in a severe attack. Home care Here are things you can do at home: Drink lots of water or other fluids (at least 10 glasses a day) during an attack. This will loosen lung secretions and make it easier to breathe. If you have heart or kidney disease, check with your doctor before you drink extra amounts of fluids. Take prescribed medicine exactly at the times advised. If you have a hand-held inhaler or aerosol breathing medicine, don't use it more than once every 4 hours, unless your doctor tells you to. If you were givenan antibiotic or prednisone, take all of the medicine even if you are feeling better after a few days. Don't smoke. Avoid being aroundthe smoke of others. If you were given an inhaler, use it exactly as directed. If you need to use it more often than prescribed, your condition may be getting worse. Call your doctor. Follow-up care Follow up with your health care provider.If you are 65 or older or have chronic asthma or COPD, you should get a single dose of the pneumococcal vaccine and aflu shot each year. You may need a second dose of the pneumococcal vaccine if you had the first dose at a younger age. Your health care provider will let you know if you need a second dose. For all other people, the usual dose for the pneumococcal vaccine is 1 or 2 shots. Yourprovider can discuss this with you. When to seek medical care Get prompt medical attention ifany of these occur: Increased wheezing or shortness of breath Need to use your inhalers more often than usual without relief Fever of 100.4F(38C) or higher, or as directed by your health care provider Coughing up lots of dark-colored or bloody sputum (mucus) Chest pain with each breath You do not start to improve within 24 hours Doxycycline Monohydrate Oral tablet What is this medicine? DOXYCYCLINE (dox eddie BRIAN hwang) is a tetracycline antibiotic. It kills certain bacteria or stops their growth. It is used to treat many kinds of infections, like dental, skin, respiratory, and urinary tract infections. It also treats acne, Lyme disease, malaria, and certain sexually transmitted infections. How should I use this medicine? Take this medicine by mouth with a full glass of water. Follow the directions on the prescription label. It is best to take this medicine without food, but if it upsets your stomach take it with food. Take your medicine at regular intervals. Do not take your medicine more often than directed. Take all of your medicine as directed even if you think you are better. Do not skip doses or stop your medicine early. Talk to your analytics lead regarding the use of this medicine in children. Special care may be needed. While this drug may be prescribed for children as young as 8 years old for selected conditions, precautions do apply. What side effects may I notice from receiving this medicine? Side effects that you should report to your doctor or health care director rn as soon as possible: allergic reactions like skin rash, itching or hives, swelling of the face, lips, or tongue difficulty breathing fever itching in the rectal or genital area pain on swallowing redness, blistering, peeling or loosening of the skin, including inside the mouth severe stomach pain or cramps unusual bleeding or bruising unusually weak or tired yellowing of the eyes or skin Side effects that usually do not require medical attention (report to your doctor or health care director rn if they continue or are bothersome): diarrhea loss of appetite nausea, vomiting What may interact with this medicine? antacids barbiturates control pills bismuth subsalicylate carbamazepine methoxyflurane other antibiotics phenytoin vitamins that contain iron warfarin What if I miss a dose? If you miss a dose, take it as soon as you can. If it is almost time for your next dose, take only that dose. Do not take double or extra doses. Where should I keep my medicine? Keep out of the reach of children. Store at room temperature, below 30 degrees C (86 degrees F). Protect from light. Keep container tightly closed. Throw away any unused medicine after the expiration date. Taking this medicine after the expiration date can make you seriously ill. What should I tell my health care provider before I take this medicine? They need to know if you have any of these conditions: liver disease long exposure to sunlight like working outdoors stomach problems like colitis an unusual or allergic reaction to doxycycline, tetracycline antibiotics, other medicines, foods, dyes, or preservatives or trying to get breast-feeding What should I watch for while using this medicine? Tell your doctor or health care director rn if your symptoms do not improve. Do not treat diarrhea with over the counter products. Contact your doctor if you have diarrhea that lasts more than 2 days or if it is severe and watery. Do not take this medicine just before going to bed. It may not dissolve properly when you lay down and can cause pain in your throat. Drink plenty of fluids while taking this medicine to also help reduce irritation in your throat. This medicine can make you more sensitive to the sun. Keep out of the sun. If you cannot avoid being in the sun, wear protective clothing and use sunscreen. Do not use sun lamps or tanning beds/booths. control pills may not work properly while you are taking this medicine. Talk to your doctor about using an extra method of control. If you are being treated for a sexually transmitted infection, avoid sexual contact until you have finished your treatment. Your sexual partner may also need treatment. Avoid antacids, aluminum, calcium, magnesium, and iron products for 4 hours before and 2 hours after taking a dose of this medicine. If you are using this medicine to prevent malaria, you should still protect yourself from contact with mosquitos. Stay in screened-in areas, use mosquito nets, keep your body covered, and use an insect repellent. Prednisone Oral tablet What is this medicine? PREDNISONE (PRED ni sone) is a corticosteroid. It is commonly used to treat inflammation of the skin, joints, lungs, and other organs. Common conditions treated include asthma, allergies, and arthritis. It is also used for other conditions, such as blood disorders and diseases of the adrenal glands. How should I use this medicine? Take this medicine by mouth with a glass of water. Follow the directions on the prescription label. Take this medicine with food. If you are taking this medicine once a day, take it in the morning. Do not take more medicine than you are told to take. Do not suddenly stop taking your medicine because you may develop a severe reaction. Your doctor will tell you how much medicine to take. If your doctor wants you to stop the medicine, the dose may be slowly lowered over time to avoid any side effects. Talk to your analytics lead regarding the use of this medicine in children. Special care may be needed. What side effects may I notice from receiving this medicine? Side effects that you should report to your doctor or health care director rn as soon as possible: allergic reactions like skin rash, itching or hives, swelling of the face, lips, or tongue changes in emotions or moods changes in vision depressed mood eye pain fever or chills, cough, sore throat, pain or difficulty passing urine increased thirst swelling of ankles, feet Side effects that usually do not require medical attention (report to your doctor or health care director rn if they continue or are bothersome): confusion, excitement, restlessness headache nausea, vomiting skin problems, acne, thin and shiny skin trouble sleeping weight gain What may interact with this medicine? Do not take this medicine with any of the following medications: metyrapone mifepristone This medicine may also interact with the following medications: aminoglutethimide amphotericin B aspirin and aspirin-like medicines barbiturates certain medicines for diabetes, like glipizide or glyburide cholestyramine cholinesterase inhibitors cyclosporine digoxin diuretics ephedrine female hormones, like estrogens and control pills isoniazid ketoconazole NSAIDS, medicines for pain and inflammation, like ibuprofen or naproxen phenytoin rifampin toxoids vaccines warfarin What if I miss a dose? If you miss a dose, take it as soon as you can. If it is almost time for your next dose, talk to your doctor or health care director rn. You may need to miss a dose or take an extra dose. Do not take double or extra doses without advice. Where should I keep my medicine? Keep out of the reach of children. Store at room temperature between 15 and 30 degrees C (59 and 86 degrees F). Protect from light. Keep container tightly closed. Throw away any unused medicine after the expiration date. What should I tell my health care provider before I take this medicine? They need to know if you have any of these conditions: Acampo's syndrome diabetes glaucoma heart disease high blood pressure infection (especially a virus infection such as chickenpox, cold sores, or herpes) kidney disease liver disease mental illness myasthenia gravis osteoporosis seizures stomach or intestine problems thyroid disease an unusual or allergic reaction to lactose, prednisone, other medicines, foods, dyes, or preservatives or trying to get breast-feeding What should I watch for while using this medicine? Visit your doctor or health care director rn for regular checks on your progress. If you are taking this medicine over a prolonged period, carry an identification card with your name and address, the type and dose of your medicine, and your doctor's name and address. This medicine may increase your risk of getting an infection. Tell your doctor or health care director rn if you are around anyone with measles or chickenpox, or if you develop sores or blisters that do not heal properly. If you are going to have surgery, tell your doctor or health care director rn that you have taken this medicine within the last twelve months. Ask your doctor or health care director rn about your diet. You may need to lower the amount of salt you eat. This medicine may affect blood sugar levels. If you have diabetes, check with your doctor or health care director rn before you change your diet or the dose of your diabetic medicine. You have been given the following additional information: COPD Flare Doxycycline Monohydrate Oral tablet Prednisone Oral tablet (Electronically signed by Sterling Cisse Dr. 02/23/2017:05)
--- NOTE | 2017-02-23 22:05 | ED DISCHARGE INSTRUCTIONS ---
Patient: MARY JANE MUNOZ General Instructions [facility] VisitID: [id number] [place] [address] 76y, F Registration Date/Time: 02/23/2017 Acute exacerbation of COPD. INSTRUCTIONS Your Current Medications: CONTINUE TAKING THE FOLLOWING MEDICATIONS: Effexor Oral : 150mg daily. HCTZ : 25 mg daily. Hydrocodone-Acetaminophen Oral. Potassium Oral : 40mEq daily. PredniSONE Oral : 10 mg daily. Sucralfate Oral : prn. Ventolin HFA Inhalation. Vitamins/Minerals Oral : 1 pill daily. Prescription Medications: Doxycycline 100 mg: Take 1 capsule orally every 12 hours for 7 days. No refill. Prednisone 10 mg tablets: take 4 tablets every day for 5 days ; then take 2 tablets every day for 3 days ; then take 1 tablet every day for 2 days. Dispense sufficient quantity. No refills. Follow-up: Follow up with your doctor in about four days. Call for an appointment. Screening today revealed the patient's blood pressure to be in the normal range. ADDITIONAL INFORMATION COPD Flare Both emphysema and chronic bronchitis are forms of chronic obstructive pulmonary disease (COPD). It is most often caused by many years of smoking tobacco. Many things can make your lung disease suddenly get worse. These causes include the common cold, pneumonia, acute bronchitis, missing doses of your regular breathing medicines, or being around smoke, dust, or other air pollutants. A COPD flare may last 7 to 14 days. Your doctor may prescribe medicineto relax your airways and prevent wheezing. Your doctor may also prescribe antibiotics if he or she thinks you havea bacterial infection. Prednisone can helpease inflammation in a severe attack. Home care Here are things you can do at home: Drink lots of water or other fluids (at least 10 glasses a day) during an attack. This will loosen lung secretions and make it easier to breathe. If you have heart or kidney disease, check with your doctor before you drink extra amounts of fluids. Take prescribed medicine exactly at the times advised. If you have a hand-held inhaler or aerosol breathing medicine, don't use it more than once every 4 hours, unless your doctor tells you to. If you were givenan antibiotic or prednisone, take all of the medicine even if you are feeling better after a few days. Don't smoke. Avoid being aroundthe smoke of others. If you were given an inhaler, use it exactly as directed. If you need to use it more often than prescribed, your condition may be getting worse. Call your doctor. Follow-up care Follow up with your health care provider.If you are 65 or older or have chronic asthma or COPD, you should get a single dose of the pneumococcal vaccine and aflu shot each year. You may need a second dose of the pneumococcal vaccine if you had the first dose at a younger age. Your health care provider will let you know if you need a second dose. For all other people, the usual dose for the pneumococcal vaccine is 1 or 2 shots. Yourprovider can discuss this with you. When to seek medical care Get prompt medical attention ifany of these occur: Increased wheezing or shortness of breath Need to use your inhalers more often than usual without relief Fever of 100.4F(38C) or higher, or as directed by your health care provider Coughing up lots of dark-colored or bloody sputum (mucus) Chest pain with each breath You do not start to improve within 24 hours Doxycycline Monohydrate Oral tablet What is this medicine? DOXYCYCLINE (dox eddie BRIAN hwang) is a tetracycline antibiotic. It kills certain bacteria or stops their growth. It is used to treat many kinds of infections, like dental, skin, respiratory, and urinary tract infections. It also treats acne, Lyme disease, malaria, and certain sexually transmitted infections. How should I use this medicine? Take this medicine by mouth with a full glass of water. Follow the directions on the prescription label. It is best to take this medicine without food, but if it upsets your stomach take it with food. Take your medicine at regular intervals. Do not take your medicine more often than directed. Take all of your medicine as directed even if you think you are better. Do not skip doses or stop your medicine early. Talk to your beverage sales consultant regarding the use of this medicine in children. Special care may be needed. While this drug may be prescribed for children as young as 8 years old for selected conditions, precautions do apply. What side effects may I notice from receiving this medicine? Side effects that you should report to your doctor or health acute care physician as soon as possible: allergic reactions like skin rash, itching or hives, swelling of the face, lips, or tongue difficulty breathing fever itching in the rectal or genital area pain on swallowing redness, blistering, peeling or loosening of the skin, including inside the mouth severe stomach pain or cramps unusual bleeding or bruising unusually weak or tired yellowing of the eyes or skin Side effects that usually do not require medical attention (report to your doctor or health acute care physician if they continue or are bothersome): diarrhea loss of appetite nausea, vomiting What may interact with this medicine? antacids barbiturates control pills bismuth subsalicylate carbamazepine methoxyflurane other antibiotics phenytoin vitamins that contain iron warfarin What if I miss a dose? If you miss a dose, take it as soon as you can. If it is almost time for your next dose, take only that dose. Do not take double or extra doses. Where should I keep my medicine? Keep out of the reach of children. Store at room temperature, below 30 degrees C (86 degrees F). Protect from light. Keep container tightly closed. Throw away any unused medicine after the expiration date. Taking this medicine after the expiration date can make you seriously ill. What should I tell my health care provider before I take this medicine? They need to know if you have any of these conditions: liver disease long exposure to sunlight like working outdoors stomach problems like colitis an unusual or allergic reaction to doxycycline, tetracycline antibiotics, other medicines, foods, dyes, or preservatives or trying to get breast-feeding What should I watch for while using this medicine? Tell your doctor or health acute care physician if your symptoms do not improve. Do not treat diarrhea with over the counter products. Contact your doctor if you have diarrhea that lasts more than 2 days or if it is severe and watery. Do not take this medicine just before going to bed. It may not dissolve properly when you lay down and can cause pain in your throat. Drink plenty of fluids while taking this medicine to also help reduce irritation in your throat. This medicine can make you more sensitive to the sun. Keep out of the sun. If you cannot avoid being in the sun, wear protective clothing and use sunscreen. Do not use sun lamps or tanning beds/booths. control pills may not work properly while you are taking this medicine. Talk to your doctor about using an extra method of control. If you are being treated for a sexually transmitted infection, avoid sexual contact until you have finished your treatment. Your sexual partner may also need treatment. Avoid antacids, aluminum, calcium, magnesium, and iron products for 4 hours before and 2 hours after taking a dose of this medicine. If you are using this medicine to prevent malaria, you should still protect yourself from contact with mosquitos. Stay in screened-in areas, use mosquito nets, keep your body covered, and use an insect repellent. Prednisone Oral tablet What is this medicine? PREDNISONE (PRED ni sone) is a corticosteroid. It is commonly used to treat inflammation of the skin, joints, lungs, and other organs. Common conditions treated include asthma, allergies, and arthritis. It is also used for other conditions, such as blood disorders and diseases of the adrenal glands. How should I use this medicine? Take this medicine by mouth with a glass of water. Follow the directions on the prescription label. Take this medicine with food. If you are taking this medicine once a day, take it in the morning. Do not take more medicine than you are told to take. Do not suddenly stop taking your medicine because you may develop a severe reaction. Your doctor will tell you how much medicine to take. If your doctor wants you to stop the medicine, the dose may be slowly lowered over time to avoid any side effects. Talk to your beverage sales consultant regarding the use of this medicine in children. Special care may be needed. What side effects may I notice from receiving this medicine? Side effects that you should report to your doctor or health acute care physician as soon as possible: allergic reactions like skin rash, itching or hives, swelling of the face, lips, or tongue changes in emotions or moods changes in vision depressed mood eye pain fever or chills, cough, sore throat, pain or difficulty passing urine increased thirst swelling of ankles, feet Side effects that usually do not require medical attention (report to your doctor or health acute care physician if they continue or are bothersome): confusion, excitement, restlessness headache nausea, vomiting skin problems, acne, thin and shiny skin trouble sleeping weight gain What may interact with this medicine? Do not take this medicine with any of the following medications: metyrapone mifepristone This medicine may also interact with the following medications: aminoglutethimide amphotericin B aspirin and aspirin-like medicines barbiturates certain medicines for diabetes, like glipizide or glyburide cholestyramine cholinesterase inhibitors cyclosporine digoxin diuretics ephedrine female hormones, like estrogens and control pills isoniazid ketoconazole NSAIDS, medicines for pain and inflammation, like ibuprofen or naproxen phenytoin rifampin toxoids vaccines warfarin What if I miss a dose? If you miss a dose, take it as soon as you can. If it is almost time for your next dose, talk to your doctor or health acute care physician. You may need to miss a dose or take an extra dose. Do not take double or extra doses without advice. Where should I keep my medicine? Keep out of the reach of children. Store at room temperature between 15 and 30 degrees C (59 and 86 degrees F). Protect from light. Keep container tightly closed. Throw away any unused medicine after the expiration date. What should I tell my health care provider before I take this medicine? They need to know if you have any of these conditions: Onley's syndrome diabetes glaucoma heart disease high blood pressure infection (especially a virus infection such as chickenpox, cold sores, or herpes) kidney disease liver disease mental illness myasthenia gravis osteoporosis seizures stomach or intestine problems thyroid disease an unusual or allergic reaction to lactose, prednisone, other medicines, foods, dyes, or preservatives or trying to get breast-feeding What should I watch for while using this medicine? Visit your doctor or health acute care physician for regular checks on your progress. If you are taking this medicine over a prolonged period, carry an identification card with your name and address, the type and dose of your medicine, and your doctor's name and address. This medicine may increase your risk of getting an infection. Tell your doctor or health acute care physician if you are around anyone with measles or chickenpox, or if you develop sores or blisters that do not heal properly. If you are going to have surgery, tell your doctor or health acute care physician that you have taken this medicine within the last twelve months. Ask your doctor or health acute care physician about your diet. You may need to lower the amount of salt you eat. This medicine may affect blood sugar levels. If you have diabetes, check with your doctor or health acute care physician before you change your diet or the dose of your diabetic medicine. You have been given the following additional information: COPD Flare Doxycycline Monohydrate Oral tablet Prednisone Oral tablet (Electronically signed by Sterling Cisse Dr. 02/23/2017:05)
== END 2017-02-23 20:20 | disposition home or self-care (01) ==
LOC: ED SRH 17:55
DX: J44.1 Chronic obstructive pulmonary disease with (acute) exacerbation (principal); K21.9 Gastro-esophageal reflux disease without esophagitis; F17.210 Nicotine dependence, cigarettes, uncomplicated; Z88.1 Allergy status to other antibiotic agents; Z88.8 Allergy status to other drugs, medicaments and biological substances; Z88.2 Allergy status to sulfonamides

== ENCOUNTER 2017-03-01 14:24 | Outpatient (CLI) | payer OTHER, MEDICARE ==
--- NOTE | 2017-03-01 17:00 | DIAGNOSTIC IMAGING REPORT ---
PROCEDURE: XR UPPER GI WITH AIR INDICATION: Dysphagia. Possible reflux. TECHNIQUE: Double contrast study was attempted, although the patient was unable to ingest crystals due to shortness of breath associated chronic obstructive pulmonary disease. 2 liters O2 provided during the study. Fluoroscopy time, 5.2 minutes; 1324.26 mGy. 82 fluoroscopic images (including cinefluoroscopy). COMPARISON: None. FINDINGS: Study was partially limited as the patient with a mildly short of breath due to chronic obstructive pulmonary disease. Pharyngoesophagus demonstrates moderate prominence of the cricopharyngeus muscle, but no evidence of obstruction or aspiration. There are marked tertiary contractions of the esophagus with a diminished esophageal peristalsis. No constricting or polypoid lesions. There is no evidence of reflux on this study (although reflux may be intermittent). There is moderate thickening of the a gastric folds (stomach incompletely distended). Stomach and duodenum are otherwise normal. IMPRESSION: 1. Partially limited study due to respiratory difficulties. 2. Moderate prominence of the cricopharyngeus muscle, but no evidence of obstruction or aspiration. 3. Marked tertiary contractions of the esophagus with diminished esophageal peristalsis. While there is no evidence of obstruction, there may be pooling saliva in the upper esophagus resulting in intermittent aspiration. 4. Moderate thickening of the gastric folds. Consider hyperacidity or gastritis. 5. Findings discussed with the patient and called to Dr. Onofre.
== END 2017-03-01 23:00 ==
LOC: XR SRH 14:24
DX: K21.9 Gastro-esophageal reflux disease without esophagitis (principal); R93.3 Abnormal findings on diagnostic imaging of other parts of digestive tract

== ENCOUNTER 2017-05-08 17:16 | Emergency (ER) | payer OTHER, MEDICARE ==
--- NOTE | 2017-05-08 19:16 | DIAGNOSTIC IMAGING REPORT ---
PROCEDURE: XR CHEST 2 VIEW INDICATION: SHORTNESS OF BREATH TECHNIQUE: PA and lateral view. COMPARISON: Chest x-ray 02/23/2017 FINDINGS: Hyperinflation with mild bibasilar atelectasis . Cardiovascular structures are normal. Mild degenerative changes of the spine. IMPRESSION: 1. COPD with bibasilar atelectasis .
--- NOTE | 2017-05-08 19:34 | ED CLINICAL REPORT ---
Clinical Report - Physicians/Mid Levels [facility] [address] [place] [address] 05/08/2017 17:17 [id number] Time Seen: 17:41 May 08 2017. Arrived- By private vehicle. Historian- patient. HISTORY OF PRESENT ILLNESS Chief Complaint: DYSPNEA and HISTORY OF CHRONIC OBSTRUCTIVE PULMONARY DISEASE. This started just prior to arrival and is still present. The dyspnea is described as mild. The patient has had sputum production, a cough and dyspnea on exertion. No calf pain, foot swelling, anxiety, dizziness or tingling. No numbness. (Patient with worsening of her cough and shortness of breath over the last 2-3 days. Denies any fever or chills. History of smoking, however has since quit. Patient wears oxygen at home occasionally. Denies any sick contacts, or recent hospitalization. patient reports history of similar episodes. She denies any fevers.). REVIEW OF SYSTEMS The patient has not had weight loss. No eye irritation, sore throat, sinus drainage, abdominal pain or diarrhea. No enlarged lymph nodes or joint pain. All systems otherwise negative, except as recorded above. PAST HISTORY Problems: DVT/PE Risk Factors. Acute Pain. Peptic Ulcer Disease. Fibromyalgia. Arthritis. Medication Refill. Lung Disease. Hypoxia. COPD - Chronic Obstructive Pulmonary Disease. Sacroiliitis. Immunizations. Anxiety Reaction. Skin Avulsion. Tetanus Status. Last Tetanus. Nephrolithiasis. Gastroesophageal Reflux. PTSD. Additional Surgeries: Adenoidectomy. Appendectomy. Cataract Surgery. Cholecystectomy. Hysterectomy. Tonsillectomy. Medications: Ventolin HFA Inhalation. Vitamins/Minerals Oral 1 pill, daily. Effexor Oral 150mg, daily. HCTZ 25 mg, daily. Hydrocodone-Acetaminophen Oral. Potassium Oral 40mEq, daily. PredniSONE Oral 10 mg, daily. Sucralfate Oral, as needed. Allergies: Biaxin. Ceclor. Cephalosporins. Definite Severe(Anaphylaxis) Cipro. (doesn't remember SE, may be anaphylaxis.) Ibuprofen. (hurts stomach when taking too much) Levofloxacin. Mild(hives) Sulfa Drugs. Definite Moderate(nausea). SOCIAL HISTORY Former smoker. No alcohol use or drug use. ADDITIONAL NOTES The nursing notes have been reviewed. PHYSICAL EXAM Vital Signs: 05/08/2017 17:25 BP: 118/81. HR: 103. RR: 18. O2 saturation: 92%. Temp: 97.9 F. Pain level now: 8/10. Appearance: Alert. No apparent distress. ENT: Nose normal. Pharynx normal. Neck: No JVD. CVS: Normal heart rate and rhythm. Heart sounds normal. Respiratory: No respiratory distress. Wheezing present. Abdomen: Soft. Back: Normal inspection. Skin: Skin warm. Normal skin color. No rash. Extremities: No lower extremity edema. Neuro: Oriented X 3. LABS, X-RAYS, AND EKG Chest X-ray: (IMPRESSION: 1. COPD with bibasilar atelectasis . Electronically Final signed by:Hernandez Mandel MD 05/08/2017 7:15:53 PM). Laboratory Tests: CBC w Diff: (GRADY: 05/08/2017 17:50) ( [facility] 05/08/2017 18:05) Final results Test Result Flag Units (Reference) WHITE BLOOD COUNT 12.2 H K/uL (4.5-11.5) RED BLOOD COUNT 3.74 L M/uL (4.00-5.20) HEMOGLOBIN 12.3 gm/dL (12.0-16.0) HEMATOCRIT 36.6 % (36.0-46.0) MEAN CELL VOLUME 98 fL (80-100) MEAN CORPUSCULAR HGB 33 pg (26-34) MEAN CORPUSCULAR HGB CONC 34 g/dL (31-37) RED CELL DISTRIBUTION WIDTH 14.4 % (11.6-14.8) PLATELET COUNT 472 H K/uL (150-400) NEUTROPHIL % 76.7 H % (50-75) LYMPH % 15.7 L % (25-40) MONO % 7.2 % (3-14) EOSINOPHIL % 0.4 % (0-4) BASOPHIL % 0 % (0-2) CHEM 13 PANEL: (GRADY: 05/08/2017 17:50) ( [facility] 05/08/2017 18:25) Final results Test Result Flag Units (Reference) GLUCOSE 115 H mg/dL (70-110) BUN 40 H mg/dL (7-18) CREATININE 1.3 mg/dL (0.6-1.3) Estimated GFR 42.33 mL/min Estimated GFR- 51.30 mL/min Note: Persistent reduction over 3 months in eGFR<60 mL/min/1.73 m2 defines CKD. Patients with eGFR values>=60 mL/min/1.73 m2 may also have CKD if evidence ofpersistent proteinuria. Additional information may be foundat www.[email or web address].org. SODIUM 141 mmol/L (136-145) POTASSIUM 3.8 mmol/L (3.5-5.1) CHLORIDE 103 mmol/L (98-107) CARBON DIOXIDE 27 mmol/L (21-32) CALCIUM 9.6 mg/dL (8.5-10.1) TOTAL PROTEIN 7.0 g/dL (6.4-8.2) ALBUMIN 3.7 g/dL (3.3-5.0) BILIRUBIN, TOTAL 0.3 mg/dL (0.0-1.0) ALKALINE PHOSPHATASE 79 U/L (46-116) AST (SGOT) 19 U/L (15-37) ALT (SGPT) 24 U/L (12-78) CPK 179 U/L (24-260) MAGNESIUM 1.8 mg/dL (1.8-2.4) TROPONIN I <0.05 ng/mL (0.00-1.5) TROPONIN REFERENCE RANGE:<0.1 NEGATIVE0.1-1.5 INDETERMINANT>1.5 POSITIVE . PROGRESS AND PROCEDURES Course of Care: patient here in the emergency department with improvement of symptoms after nebulizer treatment, some IV hydration, as well as antibiotics. Patient with no signs of acuteinfiltrate on chest x-ray, similar history of COPD exacerbation. She has at homeoxygen, however rarely uses it. Patient very stable. Her oxygen saturation 92-94% room air. I do not suspect PE. Patient with no chest pain. Very stable told palpation. 05/08/2017 20:04 BP: 119/75. HR: 93. RR: 20. O2 saturation: 94%. Temp: 98.1 F. Pain level now: 0/10. 05/08/2017 19:14 BP: 113/68. HR: 94. O2 saturation: 92%. Patient is stable. Patient/family counseled. Differential Diagnosis: I considered asthma, chronic obstructive pulmonary disease, pneumonia, pneumothorax, pleural effusion, congestive heart failure, myocardial infarction, diabetic ketoacidosis, uremia, anemia, drug related etiology, hyperventilation and HEEL LIFT GOUGER disease as a possible cause of dyspnea in this patient. This is a partial list of diagnoses considered. Disposition: Discharged. Condition: good. CLINICAL IMPRESSION Acute exacerbation of COPD. INSTRUCTIONS Warnings: Further evaluation is necessary. GENERAL WARNINGS: Return or contact your physician immediately if your condition worsens or changes unexpectedly, if not improving as expected, or if other problems arise. Prescription Medications: Doxycycline 100 mg: Take 1 capsule orally every 12 hours for 7 days. No refill. Prednisone 10 mg tablets: take 4 tablets every day for 5 days ; then take 2 tablets every day for 3 days ; then take 1 tablet every day for 2 days. Dispense sufficient quantity. No refills. (Electronically signed by Yane Mcdonough P.A.-C 05/08/2017 23:07)
--- NOTE | 2017-05-08 19:34 | ED CLINICAL REPORT ---
Clinical Report - Physicians/Mid Levels [facility] [address] [place] [address] 05/08/2017 17:17 [id number] Time Seen: 17:41 May 08 2017. Arrived- By private vehicle. Historian- patient. HISTORY OF PRESENT ILLNESS Chief Complaint: DYSPNEA and HISTORY OF CHRONIC OBSTRUCTIVE PULMONARY DISEASE. This started just prior to arrival and is still present. The dyspnea is described as mild. The patient has had sputum production, a cough and dyspnea on exertion. No calf pain, foot swelling, anxiety, dizziness or tingling. No numbness. (Patient with worsening of her cough and shortness of breath over the last 2-3 days. Denies any fever or chills. History of smoking, however has since quit. Patient wears oxygen at home occasionally. Denies any sick contacts, or recent hospitalization. patient reports history of similar episodes. She denies any fevers.). REVIEW OF SYSTEMS The patient has not had weight loss. No eye irritation, sore throat, sinus drainage, abdominal pain or diarrhea. No enlarged lymph nodes or joint pain. All systems otherwise negative, except as recorded above. PAST HISTORY Problems: DVT/PE Risk Factors. Acute Pain. Peptic Ulcer Disease. Fibromyalgia. Arthritis. Medication Refill. Lung Disease. Hypoxia. COPD - Chronic Obstructive Pulmonary Disease. Sacroiliitis. Immunizations. Anxiety Reaction. Skin Avulsion. Tetanus Status. Last Tetanus. Nephrolithiasis. Gastroesophageal Reflux. PTSD. Additional Surgeries: Adenoidectomy. Appendectomy. Cataract Surgery. Cholecystectomy. Hysterectomy. Tonsillectomy. Medications: Ventolin HFA Inhalation. Vitamins/Minerals Oral 1 pill, daily. Effexor Oral 150mg, daily. HCTZ 25 mg, daily. Hydrocodone-Acetaminophen Oral. Potassium Oral 40mEq, daily. PredniSONE Oral 10 mg, daily. Sucralfate Oral, as needed. Allergies: Biaxin. Ceclor. Cephalosporins. Definite Severe(Anaphylaxis) Cipro. (doesn't remember SE, may be anaphylaxis.) Ibuprofen. (hurts stomach when taking too much) Levofloxacin. Mild(hives) Sulfa Drugs. Definite Moderate(nausea). SOCIAL HISTORY Former smoker. No alcohol use or drug use. ADDITIONAL NOTES The nursing notes have been reviewed. PHYSICAL EXAM Vital Signs: 05/08/2017 17:25 BP: 118/81. HR: 103. RR: 18. O2 saturation: 92%. Temp: 97.9 F. Pain level now: 8/10. Appearance: Alert. No apparent distress. ENT: Nose normal. Pharynx normal. Neck: No JVD. CVS: Normal heart rate and rhythm. Heart sounds normal. Respiratory: No respiratory distress. Wheezing present. Abdomen: Soft. Back: Normal inspection. Skin: Skin warm. Normal skin color. No rash. Extremities: No lower extremity edema. Neuro: Oriented X 3. LABS, X-RAYS, AND EKG Chest X-ray: (IMPRESSION: 1. COPD with bibasilar atelectasis . Electronically Final signed by:Hernandez Mandel MD 05/08/2017 7:15:53 PM). Laboratory Tests: CBC w Diff: (GRADY: 05/08/2017 17:50) ( [facility] [place] 18:05) Final results Test Result Flag Units (Reference) WHITE BLOOD COUNT 12.2 H K/uL (4.5-11.5) RED BLOOD COUNT 3.74 L M/uL (4.00-5.20) HEMOGLOBIN 12.3 gm/dL (12.0-16.0) HEMATOCRIT 36.6 % (36.0-46.0) MEAN CELL VOLUME 98 fL (80-100) MEAN CORPUSCULAR HGB 33 pg (26-34) MEAN CORPUSCULAR HGB CONC 34 g/dL (31-37) RED CELL DISTRIBUTION WIDTH 14.4 % (11.6-14.8) PLATELET COUNT 472 H K/uL (150-400) NEUTROPHIL % 76.7 H % (50-75) LYMPH % 15.7 L % (25-40) MONO % 7.2 % (3-14) EOSINOPHIL % 0.4 % (0-4) BASOPHIL % 0 % (0-2) CHEM 13 PANEL: (GRADY: 05/08/2017 17:50) ( [facility] [place] 18:25) Final results Test Result Flag Units (Reference) GLUCOSE 115 H mg/dL (70-110) BUN 40 H mg/dL (7-18) CREATININE 1.3 mg/dL (0.6-1.3) Estimated GFR 42.33 mL/min Estimated GFR- 51.30 mL/min Note: Persistent reduction over 3 months in eGFR<60 mL/min/1.73 m2 defines CKD. Patients with eGFR values>=60 mL/min/1.73 m2 may also have CKD if evidence ofpersistent proteinuria. Additional information may be foundat www.kidney.org. SODIUM 141 mmol/L (136-145) POTASSIUM 3.8 mmol/L (3.5-5.1) CHLORIDE 103 mmol/L (98-107) CARBON DIOXIDE 27 mmol/L (21-32) CALCIUM 9.6 mg/dL (8.5-10.1) TOTAL PROTEIN 7.0 g/dL (6.4-8.2) ALBUMIN 3.7 g/dL (3.3-5.0) BILIRUBIN, TOTAL 0.3 mg/dL (0.0-1.0) ALKALINE PHOSPHATASE 79 U/L (46-116) AST (SGOT) 19 U/L (15-37) ALT (SGPT) 24 U/L (12-78) CPK 179 U/L (24-260) MAGNESIUM 1.8 mg/dL (1.8-2.4) TROPONIN I <0.05 ng/mL (0.00-1.5) TROPONIN REFERENCE RANGE:<0.1 NEGATIVE0.1-1.5 INDETERMINANT>1.5 POSITIVE . PROGRESS AND PROCEDURES Course of Care: patient here in the emergency department with improvement of symptoms after nebulizer treatment, some IV hydration, as well as antibiotics. Patient with no signs of acuteinfiltrate on chest x-ray, similar history of COPD exacerbation. She has at homeoxygen, however rarely uses it. Patient very stable. Her oxygen saturation 92-94% room air. I do not suspect PE. Patient with no chest pain. Very stable told palpation. 05/08/2017 20:04 BP: 119/75. HR: 93. RR: 20. O2 saturation: 94%. Temp: 98.1 F. Pain level now: 0/10. 05/08/2017 19:14 BP: 113/68. HR: 94. O2 saturation: 92%. Patient is stable. Patient/family counseled. 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 This is a partial list of diagnoses considered. Disposition: Discharged. Condition: good. CLINICAL IMPRESSION Acute exacerbation of COPD. INSTRUCTIONS Warnings: Further evaluation is necessary. GENERAL WARNINGS: Return or contact your physician immediately if your condition worsens or changes unexpectedly, if not improving as expected, or if other problems arise. Prescription Medications: Doxycycline 100 mg: Take 1 capsule orally every 12 hours for 7 days. No refill. Prednisone 10 mg tablets: take 4 tablets every day for 5 days ; then take 2 tablets every day for 3 days ; then take 1 tablet every day for 2 days. Dispense sufficient quantity. No refills. (Electronically signed by Yane Mcdonough P.A.-C 05/08/2017 23:07)
--- NOTE | 2017-05-08 19:34 | ED ORDER SUMMARY ---
..... Patient: MARY JANE MUNOZ OrderSheet [facility] VisitID: [id number] [place] [address] 76y, F Registration Date/Time: 05/08/2017 ORDER SHEET Weight: 45.3 kg (stated) Allergies: Biaxin, Ceclor, Cephalosporins, Cipro, Ibuprofen, Levofloxacin, Sulfa Drugs GENERAL ORDERS: Chest 2V Urgent (17:41 05/08/2017 EKoroleva P.A.-C) (Ack 17:47 PWeiler ER Tech1) (18:12 Emiliano R.N.) 3D Specialist (Continuous) (17:41 05/08/2017 EKoroleva P.A.-C) (20:04 CHernandez R.N.) Cardiac Panel Stat (17:41 05/08/2017 EKoroleva P.A.-C) (Ack 17:47 PWeiler ER Tech1) (20:04 Grace R.N.) EKG - ER Stat (17:41 05/08/2017 EKoroleva P.A.-C) (17:42 LNations ER Tech1) Vitals (19:07 05/08/2017 EKoroleva P.A.-C) (19:10 LNations ER Tech1) MEDICATION ORDERS: DuoNeb Neb Tx 1 unit dose (NOW) (17:42 05/08/2017 EKoroleva P.A.-C) (18:08 PWeiler ER Tech1) Prednisone PO 40 mg (NOW) (18:36 05/08/2017 EKoroleva P.A.-C) (19:02 SSambou R.N.) IV FLUIDS: IV NS : initial bolus 250 mL (1000 mL/hr), then 10 mL/hr for X1 (NOW); Ariel (17:41 05/08/2017 EKoroleva P.A.-C) (17:58 SSambou R.N.) ORDER SHEET NOTES: [Electronically signed by Sam Vallecillo R.N. (20:05 05/08/2017)] [Electronically signed by Yane Mcdonough P.A.-C (23:07 05/08/2017)] [Electronically locked/signed by Sam Vallecillo R.N. (20:05 05/08/2017)]
--- NOTE | 2017-05-08 19:34 | ED NURSING NOTES ---
Clinical Report - Nurses [facility] [place] [address] 05/08/2017 17:17 Patient: MARY JANE MUNOZ TRIAGE Triage time 17:26. Chief Complaint: COUGH. --17:30 Sheriff Jackson R.N. 17:25 05/08/17. BP: 118/81. HR: 103. RR: 18. O2 saturation: 92%. Temp: 97.9 F. Pain level now: 06/22. --17:30 Sheriff Jackson R.N. Weight: 45.3 kg stated. Height/Length: 60 inches Per Patient. BMI: 19.5. --17:24 Sheriff Jackson R.N. Medications Effexor Oral 150mg, daily. HCTZ 25 mg, daily. Hydrocodone-Acetaminophen Oral. Potassium Oral 40mEq, daily. PredniSONE Oral 10 mg, daily. Sucralfate Oral, as needed. --17:28 Sheriff Jackson R.N. Ventolin HFA Inhalation. Vitamins/Minerals Oral 1 pill, daily. --17:28 Sheriff Jackson R.N. Allergies Biaxin. Ceclor. Cephalosporins. Definite Severe(Anaphylaxis) Cipro. (doesn't remember SE, may be anaphylaxis.) Ibuprofen. (hurts stomach when taking too much) Levofloxacin. Mild(hives) Sulfa Drugs. Definite Moderate(nausea) --17:28 Sheriff Jackson R.N. History Arrived by private vehicle. Historian: patient. Accompanied by family. ( Trouble breathing. Breathing treatments did not help. Home O2 2L PRN.). SOCIAL HX: Never smoker. No alcohol use or drug use. FALL RISK ASSESSMENT: Fall risk assessment completed. No fall risk identified. NUTRITIONAL RISK ASSESSMENT: The nutritional risk assessment revealed no deficiencies. FUNCTIONAL ASSESSMENT: Functional assessment: no impairments noted. LEARNING NEEDS ASSESSMENT: The learning needs assessment revealed no barriers. SKIN INTEGRITY ASSESSMENT: Skin integrity risk assessment completed. No skin integrity risk identified. --17:30 Sheriff Jackson R.N. PROBLEMS: DVT/PE Risk Factors. Acute Pain. Peptic Ulcer Disease. Fibromyalgia. Arthritis. Medication Refill. Lung Disease. Hypoxia. COPD - Chronic Obstructive Pulmonary Disease. Sacroiliitis. Immunizations. Anxiety Reaction. Skin Avulsion. Tetanus Status. Last Tetanus. Nephrolithiasis. Gastroesophageal Reflux. PTSD. --17:29 Sheriff Jackson R.N. PHYSICAL ASSESSMENT To room via wheelchair. GENERAL / NEURO / PSYCH: Alert. Oriented X 4. Appears anxious. HEENT: Voice within normal limits. Mucous membranes are pink. RESPIRATORY: The patient can speak in full sentences. CVS: Capillary refill less than 2 seconds. SKIN: Skin is warm and dry. --17:31 Sheriff Jackson R.N. NURSING PROGRESS NOTES Oxygen administered by nasal cannula at 2 liters. Head of bed elevated. Reassurance given. Two patient identifiers checked. Call light placed in reach. Side rails up x 2. Bed placed in lowest position. Brakes of bed on. --17:31 Sheriff Jackson R.N. 17:57 05/08/2017 Site #1 started via IV in the right antecubital space with an 20g angiocath, with aseptic technique and good blood return; one attempt. Blood drawn: rainbow set. Labeled in the presence of the patient and sent to the lab. Saline lock flushed with 10 mL saline. --17:57 Sheriff Jackson R.N. 17:58 05/08/2017 Started bag #1 250 mL IV Fluids IV NS (Saline); at 1000 mL/hr over 30 minute(s) via site #1 via IV pump. Allergies verified and confirmed 5 rights. IV patency established. IV site checked: no pain, redness, or swelling. IV flushed thoroughly pre- and post-medication administration. --17:58 Sheriff Jackson R.N. 18:08 05/08/2017 Duoneb (Ipratropium-Albuterol) Neb TX 1 unit dose given. --18:08 Aristeo Martinez ER Tech1 EKG time: (1742). EKG was ordered, performed by a tech and shown to the PA. --18:16 Aristeo Martinez ER Tech1 18:52 05/08/2017 Prednisone PO Tablets 40 mg given. Allergies verified and confirmed 5 rights. --19:02 Sheriff Jackson R.N. 19:33 05/08/2017 Madina Mccabe TX discontinued due to improvement in patient condition. Discontinued upon discharge. --19:58 Sam Vallecillo R.N. 19:47 05/08/2017 IV Fluids IV NS Discontinued: bag #1 infused upon discharge. Total amount infused: 1000 mL. IV patency established. IV site checked: no pain, redness, or swelling. IV flushed thoroughly. --19:57 Sam Vallecillo R.N. 19:52 05/08/2017 Site #1 removed upon discharge. Pressure dressing applied. --19:57 Sam Vallecillo R.N. DISPOSITION / DISCHARGE 19:14 05/08/17. BP: 113/68. HR: 94. O2 saturation: 92%. --19:15 Ciera Ortiz, SAILAJA [facility] Condition at departure: improved. No learning barriers present. Discharge instructions provided and reviewed with the patient. Reviewed medication(s) side effects, precautions, dosing and course information. Prescription(s) given to the patient. Reviewed referral to a primary care physician for followup. Patient verbalized understanding. Written instructions provided in Occitan. The patient was discharged home and accompanied by family. She left the Emergency Department ambulatory and via private vehicle. Family member driving. --19:56 Sam Vallecillo R.N. Departure time: 20:03. --20:03 Sam Vallecillo R.N. 19:56. --20:05 Sam Vallecillo R.N. 20:04 05/08/17. BP: 119/75. HR: 93. RR: 20. O2 saturation: 94%. Temp: 98.1 F (oral). Pain level now: 0/10. --20:05 Sam Vallecillo R.N. Locked/Released at 05/08/2017 20:05 by Sam Vallecillo R.N.
--- NOTE | 2017-05-08 19:34 | ED ORDER SUMMARY ---
..... Patient: MARY JANE MUONZ OrderSheet [facility] VisitID: [id number] [place] [address] 76y, F Registration Date/Time: 05/08/2017 ORDER SHEET Weight: 45.3 kg (stated) Allergies: Biaxin, Ceclor, Cephalosporins, Cipro, Ibuprofen, Levofloxacin, Sulfa Drugs GENERAL ORDERS: Chest 2V Urgent (17:41 05/08/2017 EKoroleva P.A.-C) (Ack 17:47 PWeiler ER Tech1) (18:12 Emiliano R.N.) Automation Control Integrator (Continuous) (17:41 05/08/2017 EKoroleva P.A.-C) (20:04 CHernandez R.N.) Cardiac Panel Stat (17:41 05/08/2017 EKoroleva P.A.-C) (Ack 17:47 PWeiler ER Tech1) (20:04 Grace R.N.) EKG - ER Stat (17:41 05/08/2017 EKoroleva P.A.-C) (17:42 LNations ER Tech1) Vitals (19:07 05/08/2017 EKoroleva P.A.-C) (19:10 LNations ER Tech1) MEDICATION ORDERS: DuoNeb Neb Tx 1 unit dose (NOW) (17:42 05/08/2017 EKoroleva P.A.-C) (18:08 PWeiler ER Tech1) Prednisone PO 40 mg (NOW) (18:36 05/08/2017 EKoroleva P.A.-C) (19:02 SSambou R.N.) IV FLUIDS: IV NS : initial bolus 250 mL (1000 mL/hr), then 10 mL/hr for X1 (NOW); Ariel (17:41 05/08/2017 EKoroleva P.A.-C) (17:58 SSambou R.N.) ORDER SHEET NOTES: [Electronically signed by Sam Vallecillo R.N. (20:05 05/08/2017)] [Electronically signed by Yane Mcdonough P.A.-C (23:07 05/08/2017)] [Electronically locked/signed by Sam Vallecillo R.N. (20:05 05/08/2017)]
--- NOTE | 2017-05-08 23:07 | ED MAR SUMMARY ---
..... Medication Administration Record [facility] [address] [place] [address] Patient: MARY JANE MUNOZ Visit ID: [id number] 76y, F Weight: 45.3 kg Height/Length: 60 in BMI: 19.5 ALLERGIES: Biaxin, Ceclor, Cephalosporins, Cipro, Ibuprofen, Levofloxacin, Sulfa Drugs Start 17:58 05/08/2017 Sheriff Jackson R.N., Stop 19:47 05/08/2017 Sam Vallecillo R.N. Medication Administered: IV NS (SALINE), Dose: IV Fluids over 30 minute(s), Rate: 1000 mL/hr, Dispensed: 250 mL bag, Site: #1 right AC. Medication Ordered: IV NS : initial bolus 250 mL (1000 mL/hr), then 10 mL/hr for X1 (NOW); Ariel. Given 18:08 05/08/2017 Aristeo Martinez, SAILAJA Tech1, Stop 19:33 05/08/2017 Sam Vallecillo R.N. Medication Administered: DUONEB [NEB TX] (IPRATROPIUM-ALBUTEROL), Dose: 1 unit dose Neb TX. Medication Ordered: DuoNeb Neb Tx 1 unit dose (NOW). Given 18:52 05/08/2017 Sheriff Jackson R.N. Medication Administered: PREDNISONE [PO], Dose: 40 mg Tablets PO. Medication Ordered: Prednisone PO 40 mg (NOW).
--- NOTE | 2017-05-08 23:07 | ED DISCHARGE INSTRUCTIONS ---
Patient: MARY JANE MUNOZ General Instructions [facility] VisitID: [id number] [place] [address] 76y, F Registration Date/Time: 05/08/2017 Acute exacerbation of COPD. INSTRUCTIONS Warnings: Further evaluation is necessary. GENERAL WARNINGS: Return or contact your physician immediately if your condition worsens or changes unexpectedly, if not improving as expected, or if other problems arise. Prescription Medications: Doxycycline 100 mg: Take 1 capsule orally every 12 hours for 7 days. No refill. Prednisone 10 mg tablets: take 4 tablets every day for 5 days ; then take 2 tablets every day for 3 days ; then take 1 tablet every day for 2 days. Dispense sufficient quantity. No refills. ADDITIONAL INFORMATION COPD Flare Both emphysema and chronic bronchitis are forms of chronic obstructive pulmonary disease (COPD). It is most often caused by many years of smoking tobacco. Many things can make your lung disease suddenly get worse. These causes include the common cold, pneumonia, acute bronchitis, missing doses of your regular breathing medicines, or being around smoke, dust, or other air pollutants. A COPD flare may last 7 to 14 days. Your doctor may prescribe medicineto relax your airways and prevent wheezing. Your doctor may also prescribe antibiotics if he or she thinks you havea bacterial infection. Prednisone can helpease inflammation in a severe attack. Home care Here are things you can do at home: Drink lots of water or other fluids (at least 10 glasses a day) during an attack. This will loosen lung secretions and make it easier to breathe. If you have heart or kidney disease, check with your doctor before you drink extra amounts of fluids. Take prescribed medicine exactly at the times advised. If you have a hand-held inhaler or aerosol breathing medicine, don't use it more than once every 4 hours, unless your doctor tells you to. If you were givenan antibiotic or prednisone, take all of the medicine even if you are feeling better after a few days. Don't smoke. Avoid being aroundthe smoke of others. If you were given an inhaler, use it exactly as directed. If you need to use it more often than prescribed, your condition may be getting worse. Call your doctor. Follow-up care Follow up with your health care provider.If you are 65 or older or have chronic asthma or COPD, you should get a single dose of the pneumococcal vaccine and aflu shot each year. You may need a second dose of the pneumococcal vaccine if you had the first dose at a younger age. Your health care provider will let you know if you need a second dose. For all other people, the usual dose for the pneumococcal vaccine is 1 or 2 shots. Yourprovider can discuss this with you. When to seek medical care Get prompt medical attention ifany of these occur: Increased wheezing or shortness of breath Need to use your inhalers more often than usual without relief Fever of 100.4F(38C) or higher, or as directed by your health care provider Coughing up lots of dark-colored or bloody sputum (mucus) Chest pain with each breath You do not start to improve within 24 hours You have been given the following additional information: COPD Flare (Electronically signed by Yane Mcdonough P.A.-C 05/08/2017 23:07)
--- NOTE | 2017-05-08 23:07 | ED MED RECONCILIATION SUMMARY ---
Patient: MARY JANE MUNOZ Medication Reconciliation Report [facility] VisitID: [id number] [place] [address] 76y, F Registration Date/Time: 05/08/2017 Weight: 45.3 kg Height/Length: 60 in. BMI: 19.5 ALLERGIES: Biaxin, Ceclor, Cephalosporins, Cipro, Ibuprofen, Levofloxacin, Sulfa Drugs The patient's Home Medications are listed below: THE FOLLOWING MEDICATIONS NEED TO BE RECONCILED: Effexor Oral 150mg, daily HCTZ 25 mg, daily Hydrocodone-Acetaminophen Oral Potassium Oral 40mEq, daily PredniSONE Oral 10 mg, daily Sucralfate Oral Ventolin HFA Inhalation Vitamins/Minerals Oral 1 pill, daily The source(s) of the original Home Medication information: Not obtained. The following Medications were given to the patient in the Emergency Department: IV NS IV Fluids bolus 0, then 1000 mL/hr, administered: 05/08/2017 5:58:00 PM Duoneb [Neb Tx] Neb TX 1 unit dose, administered: 05/08/2017 6:08:00 PM Prednisone [PO] PO 40 mg, administered: 05/08/2017 6:52:00 PM The following Medications were prescribed to the patient: Doxycycline 100 mg: Take 1 capsule orally every 12 hours for 7 days. No refill. Prednisone 10 mg tablets: take 4 tablets every day for 5 days ; then take 2 tablets every day for 3 days ; then take 1 tablet every day for 2 days. Dispense sufficient quantity. No refills. -- Yane Mcdonough, PDorothyADorothy-C
--- NOTE | 2017-05-08 23:07 | ED MED RECONCILIATION SUMMARY ---
Patient: MARY JANE MUNOZ Medication Reconciliation Report [facility] VisitID: [id number] [place] [address] 76y, F Registration Date/Time: 05/08/2017 Weight: 45.3 kg Height/Length: 60 in. BMI: 19.5 ALLERGIES: Biaxin, Ceclor, Cephalosporins, Cipro, Ibuprofen, Levofloxacin, Sulfa Drugs The patient's Home Medications are listed below: THE FOLLOWING MEDICATIONS NEED TO BE RECONCILED: Effexor Oral 150mg, daily HCTZ 25 mg, daily Hydrocodone-Acetaminophen Oral Potassium Oral 40mEq, daily PredniSONE Oral 10 mg, daily Sucralfate Oral Ventolin HFA Inhalation Vitamins/Minerals Oral 1 pill, daily The source(s) of the original Home Medication information: Not obtained. The following Medications were given to the patient in the Emergency Department: IV NS IV Fluids bolus 0, then 1000 mL/hr, administered: 05/08/2017 5:58:00 PM Duoneb [Neb Tx] Neb TX 1 unit dose, administered: 05/08/2017 6:08:00 PM Prednisone [PO] PO 40 mg, administered: 05/08/2017 6:52:00 PM The following Medications were prescribed to the patient: Doxycycline 100 mg: Take 1 capsule orally every 12 hours for 7 days. No refill. Prednisone 10 mg tablets: take 4 tablets every day for 5 days ; then take 2 tablets every day for 3 days ; then take 1 tablet every day for 2 days. Dispense sufficient quantity. No refills. -- Yane Mcdonough, PDorothyADorothy-C
--- NOTE | 2017-05-08 23:07 | ED MAR SUMMARY ---
..... Medication Administration Record [facility] [address] [place] [address] Patient: MARY JANE MUNOZ Visit ID: [id number] 76y, F Weight: 45.3 kg Height/Length: 60 in BMI: 19.5 ALLERGIES: Biaxin, Ceclor, Cephalosporins, Cipro, Ibuprofen, Levofloxacin, Sulfa Drugs Start 17:58 05/08/2017 Sheriff Jackson R.N., Stop 19:47 05/08/2017 Sam Vallecillo R.N. Medication Administered: IV NS (SALINE), Dose: IV Fluids over 30 minute(s), Rate: 1000 mL/hr, Dispensed: 250 mL bag, Site: #1 right AC. Medication Ordered: IV NS : initial bolus 250 mL (1000 mL/hr), then 10 mL/hr for X1 (NOW); Ariel. Given 18:08 05/08/2017 Aristeo Martinez, SAILAJA Tech1, Stop 19:33 05/08/2017 Sam Vallecillo R.N. Medication Administered: DUONEB [NEB TX] (IPRATROPIUM-ALBUTEROL), Dose: 1 unit dose Neb TX. Medication Ordered: DuoNeb Neb Tx 1 unit dose (NOW). Given 18:52 05/08/2017 Sheriff Jackson R.N. Medication Administered: PREDNISONE [PO], Dose: 40 mg Tablets PO. Medication Ordered: Prednisone PO 40 mg (NOW).
== END 2017-05-08 20:03 | disposition home or self-care (01) ==
LOC: ED SRH 17:16
DX: J44.1 Chronic obstructive pulmonary disease with (acute) exacerbation (principal); K21.9 Gastro-esophageal reflux disease without esophagitis; Z79.899 Other long term (current) drug therapy; Z87.891 Personal history of nicotine dependence; Z88.1 Allergy status to other antibiotic agents; Z88.2 Allergy status to sulfonamides; Z88.6 Allergy status to analgesic agent; Z88.8 Allergy status to other drugs, medicaments and biological substances
CPT/HCPCS: 90100; 90616; 92610; 92720; 95059